=== PATIENT | female | born 1965 | race Caucasian/White ===

== ENCOUNTER 2023-10-09 08:50 | Inpatient (IN) | payer MEDICARE, SELFPAY ==
[2023-10-09] VITALS (20 sets, daily range): BP systolic 69–118; BP diastolic 33–60; PULSE 60–66; RESP 16–19; TEMP 36.6–36.7; O2SAT 84–100; BMI 35.0
--- NOTE | ~2023-10-09 | CT_ITS ---
CT head without contrast Indication: Weakness Technique: Serial scans were obtained through the brain without the administration of contrast. Dose reduction technique was used on this scan by utilizing automated exposure control and iterative recon struction technique. The dose-length product (DLP) was 681.00 mGy-cm. Findings: There is no evidence of intracranial hemorrhage, mass lesion, or acute infarct. The ventri cles and subarachnoid spaces are dilated, consistent with mild atrophy. Low attenuation regions are seen within the periventricular white matter bilaterally, likely representing changes from chronic mi crovascular ischemic disease. There is no evidence of edema, mass effect or midline shift. The visu alized paranasal sinuses and mastoid air cells are clear. Impression: No intracranial hemorrhage, mass, or acute infarct. Atrophy and chronic white matter changes, as above. Reviewed, dictated and finalized at location . NER Impression: No intracranial hemorrhage, mass, or acute infarct. Atrophy and chronic white matter changes, as above.
--- NOTE | ~2023-10-09 | XR_ITS ---
EXAMINATION: XR chest 1V portable DATE: 10/12/2023 07:06 INDICATION: Shortness of breath. TECHNIQUE: A single frontal view of the chest was obtained. COMPARISON: Chest single view 10/09/2023, chest CT 10/09/2023 FINDINGS: There is no pneumonia, pleural effusion, or pneumothorax. Cardiomegaly is noted. A right in ternal jugular central venous catheter is seen with tip at the superior cavoatrial junction. IMPRESSION: 1. Cardiomegaly. Reviewed, dictated and finalized at location E. TENANCE TEAM MEMBER IMPRESSION: 1. Cardiomegaly.
--- NOTE | ~2023-10-09 | XR_ITS ---
EXAMINATION: XR abdomen/kub 1V INDICATION: Constipation TECHNIQUE: Supine views of the abdomen were obtained on 2 radiographs. COMPARISON: None FINDINGS: A large volume of colonic stool is present. No dilated loops of bowel are identified. The v isualized lung bases are clear. IMPRESSION: 1. Constipation. Reviewed, dictated and finalized at location B. ITS MODEL IMPRESSION: 1. Constipation.
--- NOTE | ~2023-10-09 | XR_ITS ---
Portable chest x-ray Comparison: None Clinical History: Weakness Findings: Density at the right lung apex is probably related to the anterior right first rib. Lungs are otherwise clear. No pleural effusion. Right-sided central venous line in satisfactory position. Cardiomediastinal silhouette is stable. Bones and soft tissues are unremarkable. Impression: Density at the right lung apex is probably related to the anterior right first rib. Consider follow-u p exam or CT to confirm. Otherwise clear lungs. Support line, as above. Reviewed, dictated and finalized at location M. ERIES INSPECTOR Impression: Density at the right lung apex is probably related to the anterior right first rib. Consider follow-up exam or CT to confirm. Otherwise clear lungs. Support line, as above.
--- NOTE | ~2023-10-09 | MR_ITS ---
EXAMINATION: MR abdomen wo/w con DATE: 10/11/2023 12:50 INDICATION: Adrenal mass. TECHNIQUE: Magnetic resonance imaging (MRI) of the abdomen was performed without and with 19 mL Multi Juan Pablo intravenous contrast. COMPARISON: Chest CT 10/17/2023 FINDINGS: The liver is normal. There are two 5 mm cysts in the spleen. The gallbladder is absent. The pancreas is normal. There is a 12 mm mass in right adrenal gland containing microscopic fat, consistent with a n adenoma. There is a 3.2 cm mass in left adrenal gland containing microscopic fat, consistent with a n adenoma. There are cysts in the kidneys measuring up to 2.3 cm on the left. There are no dilated lo ops of bowel. There are no pathologically enlarged lymph nodes. There is no free intraperitoneal flui d. IMPRESSION: 1. Bilateral adrenal adenomas. Reviewed, dictated and finalized at location E. DIVER
--- NOTE | ~2023-10-09 | CT_ITS ---
Clinical Indication: Pulmonary embolus CT Scan of the Chest with Contrast: Technique: Contiguous sections were acquired throughout the chest after intravenous administration of 100 cc of Omnipaque 350. Dose reduction technique was used on this scan by utilizing automated expos ure control and iterative reconstruction technique. The dose-length product (DLP) was 1014.81 mGy-cm. Findings: There is no evidence of any significant mediastinal, hilar or axillary lymphadenopathy. There is no f illing defect in the pulmonary arterial tree to suggest pulmonary embolus. There is no evidence of ao rtic dissection or aneurysm. Cardiomegaly noted. There is no evidence of pleural or pericardial effusion. The lungs are clear. No pulmonary nodules or infiltrates are noted. Images through the upper abdomen reveal 3.8 cm left adrenal mass. Impression: No evidence of pulmonary embolus, aortic dissection, or aortic aneurysm. Clear lungs. 3.8 cm left adrenal mass, indeterminate by Hounsfield units. Recommend follow-up nonemergent MR to at tempt to confirm adenoma. Reviewed, dictated and finalized at location . RVISOR POST WAVE Impression: No evidence of pulmonary embolus, aortic dissection, or aortic aneurysm. Clear lungs. 3.8 cm left adrenal mass, indeterminate by Hounsfield units. Recommend follow-u p nonemergent MR to attempt to confirm adenoma.
--- NOTE | 2023-10-09 08:58 | ECG_ITS ---
Measurements Intervals [place] Rate: 62 P: 38 UT: 189 QRS: 14 QRSD: 118 T: 28 QT: 439 QTc: 449 Interpretive Statements SINUS RHYTHM NONSPECIFIC iNTRAVENTRICULAR CONDUCTION DELAY [110+ ms QRS DURATION] NONSPECIFIC T-WAVE ABNORMALITY BORDERLINE ECG NO PREVIOUS ECG AVAILABLE FOR COMPARISON Electronically Signed On 10-09-2023 13:50:39 LEGAL WORD PROCESSOR by Tre Pepe M.D.
[2023-10-09 09:34] LABS: Basophils Percent Auto 0.5 % (0.2-1.2); Eosinophils Absolute Auto 0.2 K/mm3 (0-0.3); Eosinophils Percent Auto 2.1 % (0-4.4); Hematocrit 28.9 % (37.0-47.0); Hemoglobin 9.2 g/dL (12.0-15.0); Immature Granulocyte Absolute 0.04 K/mm3 (0.00-0.031); Immature Granulocyte Percent A 0.5 % (0-0.5); Lymphocytes Absolute Auto 1.94 K/mm3 (0.9-3.2); Lymphocytes Percent Auto 22.3 % (18.3-44.2); Mean Corpuscular HGB Conc 31.8 g/dl (32-36); Mean Corpuscular Hemoglobin 30.9 pg (26-34); Mean Platelet Volume 10.1 fl (7.4-10.4); Monocytes Absolute Auto 0.8 K/mm3 (0.1-0.6); Monocytes Percent Auto 8.9 % (2.6-8.5); Neutrophils Absolute Auto 5.7 K/mm3 (1.3-6.7); Neutrophils Percent Auto 65.7 % (45.5-73.1); Platelet Count Result 110 k/mm3 (150-375); Red Blood Count 2.98 M/mm3 (4.2-5.4); Red Cell Distribution Width 17.2 % (11.5-14.5); White Blood Count 8.7 K/mm3 (4.5-10.0)
[2023-10-09 09:44] LABS: Alanine Aminotransferase 19 U/L (6-35); Albumin Level 3.5 g/dL (3.5-5.1); Alkaline Phosphatase 72 U/L (38-126); Anion Gap 10 mmol/L (8-16); Aspartate Amino Transferase 24 U/L (14-36); Bilirubin,Total 0.6 mg/dL (0.2-1.3); Blood Urea Nitrogen 40 mg/dL (7-17); Calcium 8.3 mg/dL (8.4-10.2); Carbon Dioxide 26 mmol/L (22-30); Chloride 98 mmol/L (98-107); Estimated CRCL calculation 10 ml/min; Estimated Glomerular Filt Rate 7; Glucose 115 mg/dL (65-110); Potassium 4.5 mmol/L (3.4-5.0); Sodium 134 mmol/L (137-145)
[2023-10-09 09:46] LABS: INR 1.1; Prothrombin Time 14.5 Seconds (11.1-14.7)
[2023-10-09 09:47] LABS: Partial Thromboplastin Time 37.1 SECONDS (22.3-36.8)
[2023-10-09] MEDS: SODIUM CHLORIDE 0.9% IV 1,000 ML 999 ML (10:14)
[2023-10-09] MEDS: SODIUM CHLORIDE 0.9% IV 760 ML 999 ML IV CONT (10:19)
--- NOTE | 2023-10-09 10:23 | ED.GENADULT ---
HPI - General Adult General Chief complaint: Weakness Stated complaint: AMS Time Seen by Provider: 10/09/23 10:10 Source: patient and EMS Mode of arrival: EMS History of Present Illness HPI narrative: 58 YEARS OLD WHITE FEMALE CAME FROM [facility] WITH GENERAL WEAKNESS AND LETHARGY STARTED LAST NIGHT. PATIENT HAD A RECENT DIAGNOSIS OF ACUTE CVA WITH RIGHT HEMIPLEGIA, PATIENT ON DIALYSIS, LAST DIALYSIS WAS YESTERDAY Related Data Home Medications Medication Instructions Recorded Confirmed albuterol sulfate 90 mcg/actuation 2 puff inhalation Q4H PRN Wheezing 10/08/23 10/09/23 aerosol inhaler amitriptyline 25 mg tablet 25 mg PO HS 10/08/23 10/09/23 amlodipine 10 mg tablet 10 mg PO DAILY 10/08/23 10/09/23 aspirin 81 mg tablet 81 mg PO DAILY 10/08/23 10/09/23 atorvastatin 80 mg tablet 80 mg PO HS 10/08/23 10/09/23 clopidogrel 75 mg tablet (Plavix) 75 mg PO DAILY 10/08/23 10/09/23 gabapentin 300 mg capsule 300 mg PO BID 10/08/23 10/09/23 insulin glargine 100 unit/mL 36 unit subcut HS 10/08/23 10/08/23 subcutaneous solution insulin lispro 100 unit/mL 12 unit subcut TIDWM 10/08/23 10/08/23 subcutaneous cartridge losartan 50 mg tablet (Cozaar) 50 mg PO DAILY 10/08/23 10/09/23 metoclopramide HCl 5 mg tablet 5 mg PO TIDWM 10/08/23 10/09/23 (Reglan) metoprolol succinate 100 mg 100 mg PO DAILY 10/08/23 10/09/23 tablet,extended release 24 hr (Toprol XL) ropinirole 0.25 mg tablet 0.25 mg PO HS 10/08/23 10/09/23 sertraline 150 mg capsule 150 mg PO QAM 10/08/23 10/09/23 sevelamer carbonate 800 mg tablet 800 mg PO TIDWM 10/08/23 10/09/23 (Renvela) heparin, porcine (PF) 5,000 5,000 unit subcut Q12H 10/09/23 10/09/23 unit/mL injection syringe hydralazine 25 mg tablet 25 mg PO QID PRN Hypertension 10/09/23 10/09/23 Allergies Allergy/AdvReac Type Severity Reaction Status Date / Time adhesive tape Allergy Rash Verified 10/09/23 09:33 duloxetine [From Cymbalta] Allergy Hives Verified 10/09/23 09:33 pregabalin [From Lyrica] Allergy Swelling Verified 10/09/23 09:33 vancomycin Allergy Other Verified 10/09/23 09:33 Review of Systems Review of Systems: All systems reviewed & are unremarkable except as noted in HPI and below PMFSH Past Medical History Medical History (Updated 10/09/23 @ 13:30 by Background Dachristopheron) Anemia Anxiety Asthma CVA (cerebral vascular accident) Depression Diabetes End stage renal disease Fibromyalgia Gastroparesis GERD (gastroesophageal reflux disease) Hyperlipidemia Hypertension NAFLD (nonalcoholic fatty liver disease) Peripheral neuropathy Restless leg syndrome Surgical History Surgical History (Updated 10/09/23 @ 11:39 by Carrie Han MD) History of tonsillectomy Hx laparoscopic cholecystectomy Status post biopsy of thyroid gland Family History Family History Mother Asthma Heart attack Hypertension Father Bipolar disorder Heart attack Hypertension Social History Social History Alcohol intake: never Substance use: never Substance use type: does not use Spiritual care concerns: No Exam Narrative: GENERAL APPEARANCE: WELL-DEVELOPED, WELL-NOURISHED SKIN: NORMAL COLOR HEAD: NORMOCEPHALIC, NONTRAUMATIC EYES: CLEAR CONJUNCTIVA ENT: OROPHARYNX NORMAL, EARS NORMAL, NOSE NORMAL NECK: SUPPLE, NONTENDER CHEST AND RESPIRATORY: AIRWAY PATENT, NO RESPIRATORY DISTRESS, NO ACCESSORY MUSCLE USE HEART: REGULAR RATE/RHYTHM ABDOMEN: SOFT, NONTENDER, NO ORGANOMEGALY, QUIET BOWEL SOUNDS VASCULAR: NORMAL PERIPHERAL PULSES, NORMAL CAPILLARY REFILL. MUSCULOSKELETAL: RIGHT HEMIPLEGIA NEUROLOGIC: ALERT AND ORIENTED ?3, RIGHT HEMIPLEGIA
[2023-10-09 11:03] LABS: Influenza A QL RT-PCR Negative (Negative); Influenza B QL RT-PCR Negative (Negative); RSV RNA, RT-PCR Negative (Negative); SARS-CoV-2 RNA PCR Negative (Negative)
[2023-10-09 11:06] LABS: Appearance Urine Cloudy (Clear); Bacteria Urine None Seen /hpf; Bilirubin Urine Negative (Negative); Blood Urine Trace (Negative); Color Urine Dark Yellow (Yellow); Glucose Urine UA 2+ mg/dL (Negative); Ketones Urine Trace mg/dL (Negative); Leukocyte Esterase Ur Trace LEU/UL (Negative); Need Manual Microscopic Reviewed; Nitrate Urine Negative (Negative); Protein Urine 4+ mg/dL (Negative); RBC Urine 0-2 /hpf (0-2); Specific Grav Ur 1.032 (1.001-1.035); Squamous Epithelial Cell Urine Few /hpf (Few); WBC Urine 0-5 /hpf; pH Urine 5.5 (5.0-9.0)
[2023-10-09 11:07] LABS: Base Excess ABG -2.8 mEq/l (+/-2.0); Fractional Inspired Oxygen 21 %; HCO3 ABG 22.5 mEq/l (22.0-26.0); Oxygen Content ABG 11.5 %vol (16.0-22.0); Oxygen Saturation ABG 87.5 % (95.0-100.0); PCO2 ABG 41.3 mmHg (35.0-45.0); PO2 ABG 55.3 mmHg (80.0-100.0); PO2 FiO2 Ratio Arterial Blood 2.63 %; Total Hemoglobin 9.6 g/dL (12.0-18.0); pH ABG 7.355 (7.350-7.450)
[2023-10-09 11:08] LABS: Device ROOM AIR; Modified Allen's Test Pass; Oxyhemoglobin 85.2 % THb (90.0-100.0); Site Drawn RIGHT RADIAL
[2023-10-09 11:08] LABS: Add Urine Microscopic? YES
--- NOTE | 2023-10-09 15:10 | ADMGEN ---
This patient, Ann Marie Luque, was admitted to Medical Room 247-. Patient/family oriented to hospital policies and general routines including ID bracelet, bed and alarms, visiting hours, pain management, procedures, bathroom and other care routines, personal items, smoking policy, room service/diet, and visiting hours. Information on how to activate the Rapid Response Team has been discussed. Patient/Family are encouraged to report perceived risks to care and to ask questions if they do not understand what they are told or what they should do.
[2023-10-09 19:35] LABS: MRSA (PCR) NOT DETECTED (NOT DETECTE)
[2023-10-10] VITALS (31 sets, daily range): BP systolic 101–151; BP diastolic 44–95; PULSE 56–82; RESP 16–20; TEMP 36.5–37.4; O2SAT 91–100
[2023-10-10] MEDS: INSULIN GLARGINE (*BKC) 100 UNITS/ML 32 UNITS SUB-Q ×2 (01:07→21:04)
[2023-10-10] MEDS: rOPINIRole HCL 0.25 MG TABLET PO ×2 (01:07→21:03)
--- NOTE | 2023-10-10 02:13 | PM.IMHP ---
H&P: HPI History of Present Illness Date/Time: 10/10/23 00:13 Chief Complaint: Lethargy, low blood pressure Narrative: 58-year-old female with a past medical history end-stage renal disease on hemodialysis, type 2 diabetes mellitus, essential hypertension, obesity, and recent CVA who presented to the hospital from [facility] acute rehab due to lethargy and hypotension. Patient initially presented to [facility] due to will factor hallucinations, vision defect, abnormal gait, dry eyes and mouth and multiple episodes of emesis. She was found to have a left paramedian pontine infarct. It is unclear from documentation when exactly the acute infarct occurred however the patient thinks that it was approximately 4 days ago.. Patient was transferred to acute rehab on 10/08/2023. The patient shortly after presentation to acute rehab the patient had increased weakness and lethargy that occurred after dialysis. Patient was found to be hypotensive with systolic blood pressures in the 80s. She was transferred to [facility] ER at which time her blood pressures shortly after arrival was 69/33. The patient received 3/4 of a L fluid in bolus with resolution of hypotension. Patient also had a documented findings hypoxia with O2 sats as low as 85%. ABG was performed which correlated with these findings. CTA of the chest was negative for pulmonary embolism and lungs were otherwise clear. Cardiomegaly was noted. Patient been placed on 3 L nasal cannula with improvement in oxygenation between [address] of the head without contrast demonstrated no acute process chronic atrophy and white matter changes. Patient was admitted as observation with Nephrology consult. The patient has a my evaluation was completed alert oriented but could not remember the events that brought her to the ER. She has not been having any fevers or chills. She denies any significant shortness of breath. She does have a history of CHF per her report. She denies a known history of COPD or asthma. She is a lifelong nonsmoker. She reports weakness in her right side since her stroke and vision changes in her right eye as well. She reports that this is at least her 2nd stroke. She reports that her kidney failure is due to diabetes and hypertension. She does have peripheral neuropathy. She reports that she has been on dialysis for approximately 2 years. Her rib cutter is Dr. Moreno. Dialysis is Thursday, day Thursday. She denies history of obstructive sleep apnea and has had a prior sleep study several years ago. She has actually lost weight since her prior sleep study. She reports that is been approximately 1 week since her last bowel movement. She denies any abdominal pain. Source of information is from ER physician report, nursing report, and records from acute rehab. The patient herself also provided some history in was a relatively good historian. Review of Systems Review of Systems: 12 systems were reviewed with pertinent positives and negatives per HPI. Except as documented in the HPI, all other systems were reviewed and are negative. [facility] Past Medical History Medical History Anemia Anxiety Asthma CVA (cerebral vascular accident) Depression Diabetes End stage renal disease Fibromyalgia Gastroparesis GERD (gastroesophageal reflux disease) Hyperlipidemia Hypertension NAFLD (nonalcoholic fatty liver disease) Peripheral neuropathy Restless leg syndrome Surgical History Surgical History History of tonsillectomy Hx laparoscopic cholecystectomy Status post biopsy of thyroid gland Family History Family History Mother Asthma Heart attack Hypertension Father Bipolar disorder Heart attack Hypertension Social History Social History (Updated 10/10/23 @ 05:58 by Nanette
[2023-10-10 07:21] LABS: Basophils Percent Auto 0.5 % (0.2-1.2); Eosinophils Absolute Auto 0.3 K/mm3 (0-0.3); Eosinophils Percent Auto 3.3 % (0-4.4); Hematocrit 30.7 % (37.0-47.0); Hemoglobin 9.4 g/dL (12.0-15.0); Immature Granulocyte Absolute 0.04 K/mm3 (0.00-0.031); Immature Granulocyte Percent A 0.5 % (0-0.5); Immature Platelet Fraction Pct 4.5 % (0.9-11.2); Lymphocytes Absolute Auto 1.19 K/mm3 (0.9-3.2); Lymphocytes Percent Auto 15.3 % (18.3-44.2); Mean Corpuscular HGB Conc 30.6 g/dl (32-36); Mean Corpuscular Hemoglobin 31.1 pg (26-34); Mean Corpuscular Volume 101.7 fl (80-100); Mean Platelet Volume 10.7 fl (7.4-10.4); Monocytes Absolute Auto 0.6 K/mm3 (0.1-0.6); Monocytes Percent Auto 7.1 % (2.6-8.5); Neutrophils Absolute Auto 5.7 K/mm3 (1.3-6.7); Neutrophils Percent Auto 73.3 % (45.5-73.1); Platelet Count Result 94 k/mm3 (150-375); Red Blood Count 3.02 M/mm3 (4.2-5.4); Red Cell Distribution Width 17.1 % (11.5-14.5); White Blood Count 7.8 K/mm3 (4.5-10.0)
[2023-10-10 07:38] LABS: Alanine Aminotransferase 15 U/L (6-35); Albumin Level 3.6 g/dL (3.5-5.1); Alkaline Phosphatase 69 U/L (38-126); Anion Gap 13 mmol/L (8-16); Aspartate Amino Transferase 20 U/L (14-36); Bilirubin,Total 0.5 mg/dL (0.2-1.3); Blood Urea Nitrogen 46 mg/dL (7-17); Calcium 7.7 mg/dL (8.4-10.2); Carbon Dioxide 20 mmol/L (22-30); Chloride 101 mmol/L (98-107); Estimated CRCL calculation 9 ml/min; Estimated Glomerular Filt Rate 6; Glucose 102 mg/dL (65-110); Phosphorus 8.8 mg/dL (2.5-4.5); Potassium 4.4 mmol/L (3.4-5.0); Sodium 134 mmol/L (137-145)
[2023-10-10] MEDS: METOPROLOL SUCCINATE EXT REL 50 MG TABCR PO (08:07)
[2023-10-10] MEDS: SERTRALINE HCL 50 MG TABLET 150 MG PO (08:08)
[2023-10-10] MEDS: LOSARTAN POTASSIUM 50 MG TABLET PO (08:08)
[2023-10-10] MEDS: HEPARIN SODIUM 5,000 UNITS/ML VIAL 5000 UNITS SUB-Q (08:09)
[2023-10-10] MEDS: SEVELAMER CARBONATE 800 MG TABLET PO ×3 (08:09→17:26)
[2023-10-10] MEDS: LIPASE/AMYLASE/PROTEASE 12,000 UNITS CAP 8 CAP PO ×3 (08:09→17:26)
[2023-10-10] MEDS: METOCLOPRAMIDE HCL 5 MG TABLET PO ×3 (08:09→17:26)
[2023-10-10] MEDS: CLOPIDOGREL BISULFATE 75 MG TABLET PO (08:09)
[2023-10-10] MEDS: GABAPENTIN 300 MG CAPSULE PO ×2 (08:09→17:26)
[2023-10-10] MEDS: ASPIRIN 81 MG CHEWABLE TABLET PO (08:09)
[2023-10-10] MEDS: OMEGA 3 POLYUNSAT FATTY ACIDS 1 GM CAP BY MOUTH ×2 (08:09→17:26)
[2023-10-10 08:22] LABS: Glucose Point of Care 106 mg/dl (65-105)
--- NOTE | 2023-10-10 08:40 | PM.IMPN ---
Progress Note: A&P Assessment and Plan (1) Acute hypoxemic respiratory failure: Code(s): J96.01 - Acute respiratory failure with hypoxia Status: Acute Assessment and Plan: Was found with an O2 sat 85% on admission Patient was placed on 3 L nasal cannula Continue to wean oxygen for an O2 sat of 92% or greater (2) Acute hypotension: Code(s): I95.9 - Hypotension, unspecified Status: Acute Assessment and Plan: In initial blood pressure was 69/33 She was given 2 L of normal saline while in the ED with improvement of her blood pressure (3) Hemodialysis patient: Code(s): Z99.2 - Dependence on renal dialysis Status: Acute Assessment and Plan: Normally Thursday dialysis She is followed by Dr. Moreno She missed her dialysis yesterday due to her hypotensive episode and will get HD today with no fluid removal (4) End stage renal disease: Code(s): N18.6 - End stage renal disease Status: Chronic Assessment and Plan: See above (5) Hypertension: Qualifiers: Hypertension type: primary hypertension Qualified Code(s): I10 - Essential (primary) hypertension Code(s): I10 - Essential (primary) hypertension Status: Chronic Assessment and Plan: Currently hypotensive on admission with systolic blood pressures in the 60s Currently hydralazine and amlodipine are on hold (6) Type 2 diabetes mellitus with hyperglycemia: Qualifiers: Diabetes mellitus snf insulin use: with terminal operations supervisor use Qualified Code(s): E11.65 - Type 2 diabetes mellitus with hyperglycemia; Z79.4 - manager long term care (current) use of insulin Code(s): E11.65 - Type 2 diabetes mellitus with hyperglycemia Status: Chronic Assessment and Plan: Blood sugars ranging 102-145 Hemoglobin A1c ordered Restarted her Lantus of 36 units at HS Sliding scale insulin 12 units subQ t.i.d. with meals Diabetic diet (7) Thrombocytopenia: Code(s): D69.6 - Thrombocytopenia, unspecified Status: Acute Assessment and Plan: Initial platelet count 1, now down to 94 Will hold heparin today, however patient has been taking heparin 5000 units twice a day at home Time Spent With Patient Time with patient: Greater than 35 minutes Subjective Date/time seen: 10/10/23 08:40 Interval history: This is a 58 year old female who presented to the hospital today from [facility] acute rehab with lethargy and hypotension. Work up in the hospital included a head CT which was negative for any acute intracranial hemorrhage, mass, or infarct, and age related changes. She also had a CXR was negative for any acute cardiopulmonary process. CTA of the chest was negative for PE, shown a 3.8 cm adrenal mass. Initial labs revealed Hgb 9.2, Hct 28.9, plt 110, pO2 55.3, ABG saturation 87.5, Na+ 134, BUN 40, creatinine 6.10, CA+ 8.3, total protein 6.0. UA shown 4+ protein, 2+ glucose, trace ketones, trace leukocytes. Respiratory panel negative for Influenza, RSV, and COVID. Hep B antigen and antibody pending. MRSA was negative. EKG shown NSR with a rate of 62, prolonged QTc. Patient was given 2L NS in the ER with improvement of her blood pressure. Nephrology was consulted. On examination today patient is alert oriented x3, lying in the bed. She denies any fever, chills, nausea, vomiting, diarrhea, abdominal pain, chest pain, shortness a breath. Labs today shown Hgb 9.4, Hct 30.7, Plt 94, Na+ 134, Bicarb 20, BUN 46, creatinine 7.10, BG ranging 102-106, Ca+ 7.7, Phos 8.8, total protein 6.0, liver enzymes are normal. Plan is for HD today. Review of Systems Review of Systems: All systems reviewed & are unremarkable except as noted in HPI and below Constitutional: Constitutional: Reports as per HPI and Reports no additional constitutional complaints Eyes: Eyes: Reports as per HPI and Reports no additional eye complaints ENT: Reports system reviewed and n
[2023-10-10 08:49] LABS: Anisocytosis 1+ (NORMAL); Platelet Estimate Adequate (Adequate); Schistocytes None Seen (NORMAL)
--- NOTE | 2023-10-10 09:39 | PM.CNNEP ---
Assessment and Plan Assessment and plan (1) End stage renal disease: Code(s): N18.6 - End stage renal disease Status: Chronic Assessment and Plan: the patient has end-stage renal disease. This is due to diabetes and hypertension. She has been on dialysis for [address] Moreno. She was due for dialysis yesterday but because of the transfer she did not get it so we will do dialysis today. Volume status looks okay. Dr. Han wrote for no fluid removal. potassium is normal so we will change to a 3K bath. (2) CVA (cerebral vascular accident): Code(s): I63.9 - Cerebral infarction, unspecified Status: Acute Assessment and Plan: The patient had a stroke a few days ago. She is getting physical therapy. She is on aspirin. She is on atorvastatin , and fish oil. (3) Hypertension: Qualifiers: Hypertension type: primary hypertension Qualified Code(s): I10 - Essential (primary) hypertension Code(s): I10 - Essential (primary) hypertension Status: Chronic Assessment and Plan: Blood pressure is currently doing pretty well. It was low yesterday. Hydralazine was discontinued. Will follow blood pressures going forward. No fluid removal today. (4) Hyperlipidemia: Code(s): E78.5 - Hyperlipidemia, unspecified Status: Acute Assessment and Plan: The patient is on atorvastatin (5) Type 2 diabetes mellitus with hyperglycemia: Qualifiers: Diabetes mellitus [facility] insulin use: with [facility] use Qualified Code(s): E11.65 - Type 2 diabetes mellitus with hyperglycemia; Z79.4 - superintendent marine oil terminal (current) use of insulin Code(s): E11.65 - Type 2 diabetes mellitus with hyperglycemia Status: Chronic Assessment and Plan: on Accu-Cheks and sliding-scale insulin. Management per hospitalists. (6) Anemia: Code(s): D64.9 - Anemia, unspecified Status: Chronic Assessment and Plan: Hemoglobin 9.4. She will get Epogen with dialysis today. (7) Adrenal mass, left: Code(s): E27.8 - Other specified disorders of adrenal gland Status: Acute Assessment and Plan: CTA done yesterday shows an adrenal mass. (8) Renal osteodystrophy: Code(s): N25.0 - Renal osteodystrophy Status: Acute Assessment and Plan: Will check a phosphorus level in the morning (9) Mental status alteration: Code(s): R41.82 - Altered mental status, unspecified Status: Acute Assessment and Plan: patient's blood pressure was quite low. It is better now in her mental status is better. No sign of infection. She is on a few medications chronically which could be considered mind-altering but nothing new. Imaging is okay. Will let the hospitalists do further evaluation. History of Present Illness Reason for Consult Consult date: 10/10/23 Chief Complaint Chief complaint: Acute Hypoxic Respiratiory Failure/Weakness/Hemodi History of Present Illness Narrative: Ann Marie is a very pleasant 58-year-old lady who has multiple medical problems including end-stage renal disease on dialysis Wednesdays and Fridays under the care of Dr. Mercy Moreno. She has been on dialysis for a couple of years. Her end-stage renal disease is due to diabetes and hypertension. She does pretty well on dialysis. She also has had several strokes. One on the right and 1 on the left. She also has diabetes, hypertension, hyperlipidemia, high body mass index, GERD , anemia of chronic kidney disease, renal osteodystrophy. The patient's issues this time started with right-sided weakness and a fall. She says she waited a couple of days before she went but eventually she went to [facility] to the ER. They admitted her. They did testing and did not find anything. she was given physical therapy and supportive care. She was referred to [facility] inpatient [facility] and she
[2023-10-10] MEDS: INSULIN ASPART (*BKC) 100 UNITS/ML 12 UNITS SUB-Q ×2 (09:44→12:09)
[2023-10-10 09:48] LABS: Hepatitis B Surface Antigen Negative (Negative)
[2023-10-10 10:04] LABS: Hepatitis B Surface Anti Res Negative
--- NOTE | 2023-10-10 10:19 | PC.NURSE ---
Patient resting comfortably during morning assessment. No needs at this time. Insulin held until after she eats breakfast (BG 106). Per RT patient is 96% on RA and has been taken of NC. Probable HD at 1300, patient made aware.
[2023-10-10 12:03] LABS: Glucose Point of Care 145 mg/dl (65-105)
--- NOTE | 2023-10-10 14:53 | PCPTNOTE ---
attempted PT eval this afternoon, she was out of her room for dialysis.
[2023-10-10] MEDS: ACETAMINOPHEN 325 MG TABLET 650 MG BY MOUTH (15:42)
[2023-10-10] MEDS: EPOETIN ALFA-EPBX 10,000 UNITS/ML VIAL 10000 UNITS IV PUSH (17:00)
[2023-10-10 17:32] LABS: Glucose Point of Care 95 mg/dl (65-105)
[2023-10-10 20:59] LABS: Glucose Point of Care 110 mg/dl (65-105)
--- NOTE | 2023-10-10 20:59 | PC.NURSE ---
Pt's glucose checked at 20:50, result: 110. This RN called Eve Ureña NP. Orders received to give 32 units of Lantus as scheduled.
[2023-10-10] MEDS: ATORVASTATIN 40 MG TABLET 80 MG PO (21:03)
[2023-10-10] MEDS: AMITRIPTYLINE HCL 25 MG TABLET PO (21:03)
[2023-10-11] VITALS (8 sets, daily range): BP systolic 94–139; BP diastolic 48–70; PULSE 57–70; RESP 14–20; TEMP 36.1–37; O2SAT 94–100
[2023-10-11 06:06] LABS: Basophils Percent Auto 0.5 % (0.2-1.2); Eosinophils Absolute Auto 0.2 K/mm3 (0-0.3); Eosinophils Percent Auto 2.5 % (0-4.4); Hematocrit 27.4 % (37.0-47.0); Hemoglobin 8.7 g/dL (12.0-15.0); Immature Granulocyte Absolute 0.02 K/mm3 (0.00-0.031); Immature Granulocyte Percent A 0.3 % (0-0.5); Immature Platelet Fraction Pct 4.8 % (0.9-11.2); Lymphocytes Percent Auto 15.4 % (18.3-44.2); Mean Corpuscular HGB Conc 31.8 g/dl (32-36); Mean Corpuscular Hemoglobin 30.9 pg (26-34); Mean Corpuscular Volume 97.2 fl (80-100); Mean Platelet Volume 10.6 fl (7.4-10.4); Monocytes Absolute Auto 0.6 K/mm3 (0.1-0.6); Monocytes Percent Auto 9.1 % (2.6-8.5); Neutrophils Absolute Auto 4.7 K/mm3 (1.3-6.7); Neutrophils Percent Auto 72.2 % (45.5-73.1); Platelet Count Result 86 k/mm3 (150-375); Red Blood Count 2.82 M/mm3 (4.2-5.4); Red Cell Distribution Width 17.1 % (11.5-14.5); White Blood Count 6.5 K/mm3 (4.5-10.0)
[2023-10-11 06:29] LABS: Alanine Aminotransferase 15 U/L (6-35); Albumin Level 3.3 g/dL (3.5-5.1); Alkaline Phosphatase 68 U/L (38-126); Anion Gap 6 mmol/L (8-16); Aspartate Amino Transferase 21 U/L (14-36); Bilirubin,Total 0.4 mg/dL (0.2-1.3); Blood Urea Nitrogen 28 mg/dL (7-17); Carbon Dioxide 28 mmol/L (22-30); Chloride 100 mmol/L (98-107); Estimated CRCL calculation 15 ml/min; Estimated Glomerular Filt Rate 11; Glucose 81 mg/dL (65-110); Phosphorus 4.5 mg/dL (2.5-4.5); Sodium 134 mmol/L (137-145)
[2023-10-11 06:48] LABS: Hypochromasia 1+ (NORMAL); Microcytosis 1+ (NORMAL); Platelet Estimate Decreased (Adequate); Schistocytes None Seen (NORMAL)
[2023-10-11 07:52] LABS: Glucose Point of Care 82 mg/dl (65-105)
[2023-10-11] MEDS: OMEGA 3 POLYUNSAT FATTY ACIDS 1 GM CAP BY MOUTH ×2 (08:45→17:15)
[2023-10-11] MEDS: SERTRALINE HCL 50 MG TABLET 150 MG PO (08:45)
[2023-10-11] MEDS: GABAPENTIN 300 MG CAPSULE PO ×2 (08:46→17:15)
[2023-10-11] MEDS: LIPASE/AMYLASE/PROTEASE 12,000 UNITS CAP 8 CAP PO ×3 (08:46→17:15)
[2023-10-11] MEDS: ASPIRIN 81 MG CHEWABLE TABLET PO (08:46)
[2023-10-11] MEDS: SEVELAMER CARBONATE 800 MG TABLET PO ×3 (08:46→17:14)
[2023-10-11] MEDS: CLOPIDOGREL BISULFATE 75 MG TABLET PO (08:46)
[2023-10-11] MEDS: METOCLOPRAMIDE HCL 5 MG TABLET PO ×3 (08:52→17:15)
[2023-10-11] MEDS: METOPROLOL SUCCINATE EXT REL 50 MG TABCR PO (09:15)
[2023-10-11] MEDS: LOSARTAN POTASSIUM 50 MG TABLET PO (09:15)
--- NOTE | 2023-10-11 09:54 | PM.PNNEP ---
Progress Note: A&P Assessment and Plan (1) End stage renal disease: Code(s): N18.6 - End stage renal disease Status: Chronic Assessment and Plan: the patient has end-stage renal disease. This is due to diabetes and hypertension. She has been on dialysis for [address] Moreno. The patient had dialysis yesterday Volume status looks okay. potassium is normal so we will change to a 3K bath. will do the next dialysis tomorrow (2) CVA (cerebral vascular accident): Code(s): I63.9 - Cerebral infarction, unspecified Status: Acute Assessment and Plan: The patient had a stroke a few days ago. She is getting physical therapy. She is on aspirin. She is on atorvastatin , and fish oil. (3) Hypertension: Qualifiers: Hypertension type: primary hypertension Qualified Code(s): I10 - Essential (primary) hypertension Code(s): I10 - Essential (primary) hypertension Status: Chronic Assessment and Plan: Blood pressure is currently doing pretty well. It was low yesterday. Hydralazine was discontinued. Will follow blood pressures going forward. No fluid removal today. (4) Hyperlipidemia: Code(s): E78.5 - Hyperlipidemia, unspecified Status: Acute Assessment and Plan: The patient is on atorvastatin (5) Type 2 diabetes mellitus with hyperglycemia: Qualifiers: Diabetes mellitus salvage determiner insulin use: with skilled nursing use Qualified Code(s): E11.65 - Type 2 diabetes mellitus with hyperglycemia; Z79.4 - prison (current) use of insulin Code(s): E11.65 - Type 2 diabetes mellitus with hyperglycemia Status: Chronic Assessment and Plan: on Accu-Cheks and sliding-scale insulin. Management per hospitalists. (6) Anemia: Code(s): D64.9 - Anemia, unspecified Status: Chronic Assessment and Plan: Hemoglobin 9.4. She will get Epogen with dialysis again tomorrow (7) Adrenal mass, left: Code(s): E27.8 - Other specified disorders of adrenal gland Status: Acute Assessment and Plan: CTA done yesterday shows an adrenal mass. (8) Renal osteodystrophy: Code(s): N25.0 - Renal osteodystrophy Status: Acute Assessment and Plan: phosphorus is normal (9) Mental status alteration: Code(s): R41.82 - Altered mental status, unspecified Status: Acute Assessment and Plan: this seems better. Eval per hospitalists Subjective Date/time seen: 10/11/23 09:54 Interval history: The patient is alert. She is feeling okay. Mental status is improved. Review of Systems Cardiovascular: Cardiovascular: Reports no additional cardiovascular complaints Respiratory: Respiratory: Reports no additional respiratory complaints Gastrointestinal: Gastrointestinal: Reports no additional gastrointestinal complaints Genitourinary: Genitourinary: Reports no additional female genitourinary complaints Exam Narrative: WDWN in NAD skin no rash head ncat lungs clear cor reg no rub abd BS+ nontender and soft ext no edema. Objective Data Vital Signs Vital Signs: Vital Signs - 24 hr 10/10/23 09:55 10/10/23 11:26 10/10/23 13:30 Temperature 98.0 F Pulse Rate 60 Respiratory Rate 18 Blood Pressure 128/59 L Pulse Oximetry 96 Oxygen Delivery Room Air Room Air 10/10/23 13:34 10/10/23 13:45 10/10/23 14:00 Temperature Pulse Rate 58 L 58 L 60 Respiratory Rate Blood Pressure 146/66 H 137/68 136/72 Pulse Oximetry Oxygen Delivery 10/10/23 14:15 10/10/23 14:30 10/10/23 12:00 Temperature Pulse Rate 58 L 71 59 L Respiratory Rate Blood Pressure 105/65 114/57 L Pulse Oximetry Oxygen Delivery 10/10/23 14:45 10/10/23 15:00 10/10/23 15:15 Temperature Pulse Rate 64 57 L 63 Respiratory Rate Blood Pressure 129/60 117/76 132/59 L Pulse Oximetry Oxygen Delivery
[2023-10-11] MEDS: INSULIN ASPART (*BKC) 100 UNITS/ML 12 UNITS SUB-Q ×2 (13:02→17:16)
[2023-10-11 13:05] LABS: Glucose Point of Care 117 mg/dl (65-105)
[2023-10-11] MEDS: polyethylene glycoL 3350 17 GM POWD.PACK PO (13:55)
[2023-10-11] MEDS: DOCUSATE SODIUM 100 MG CAPSULE PO (13:55)
--- NOTE | 2023-10-11 15:01 | P.PNIM_ITS ---
Progress Note: A&P Assessment and Plan (1) Acute hypoxemic respiratory failure: Code(s): J96.01 - Acute respiratory failure with hypoxia Status: Acute Assessment and Plan: * currently on room air (2) Acute hypotension: Code(s): I95.9 - Hypotension, unspecified Status: Acute Assessment and Plan: * In initial blood pressure was 69/33 * She was given 2 L of normal saline while in the ED with improvement of her blood pressure * continue to monitor (3) Hemodialysis patient: Code(s): Z99.2 - Dependence on renal dialysis Status: Acute Assessment and Plan: * Normally Thursday dialysis * She is followed by Dr. Moreno * nephrology consulted (4) End stage renal disease: Code(s): N18.6 - End stage renal disease Status: Chronic Assessment and Plan: * See above (5) Hypertension: Qualifiers: Hypertension type: primary hypertension Qualified Code(s): I10 - Essential (primary) hypertension Code(s): I10 - Essential (primary) hypertension Status: Chronic Assessment and Plan: * Currently hypotensive on admission with systolic blood pressures in the 60s * Currently hydralazine and amlodipine are on hold (6) Type 2 diabetes mellitus with hyperglycemia: Qualifiers: Diabetes mellitus director council on aging insulin use: with residential use Qualified Code(s): E11.65 - Type 2 diabetes mellitus with hyperglycemia; Z79.4 - half-way (current) use of insulin Code(s): E11.65 - Type 2 diabetes mellitus with hyperglycemia Status: Chronic Assessment and Plan: * Blood sugars ranging 102-145 * Hemoglobin A1c ordered * Restarted her Lantus of 36 units at HS * Sliding scale insulin 12 units subQ t.i.d. with meals * Diabetic diet (7) Thrombocytopenia: Code(s): D69.6 - Thrombocytopenia, unspecified Status: Acute Assessment and Plan: * Initial platelet count 1, now down to 87 * Will hold heparin * continue to monitor * iron studies ordered Subjective Date/time seen: 10/11/23 15:01 Interval history: Patient reports she is feeling somewhat better today after dialysis yesterday, but still very lethargic. Her BP has been stable today, nephrology following and will follow recommendations. Kidney function looks slightly improved post dialysis. PT/OT ordered as she came from [facility] but does not feel she was making improvement there. MRI ordered for additional evaluation of CTA findings. Will continue to monitor. Review of Systems Review of Systems: All systems reviewed & are unremarkable except as noted in HPI and below Exam Narrative: General: Ill-appearing, in no acute distress Head: atraumatic, no encephalopathy Eyes: EOMI, PERRLA ENT: moist mucous membranes Neck: supple Cardiac: RRR, Normal S1 and S2. Respiratory: Lungs clear to auscultation, no adventitious lung sounds Gastrointestinal: soft, non-distended, non-tender, normoactive bowel sounds. Extremities: no edema Skin: clean, dry, intact. No wounds or lesions. Neuro: Alert and oriented x4, cranial nerves intact, no neuro deficits. Psych: normal mood, normal affect Objective Data Vital Signs Vital Signs: Vital Signs - 24 hr 10/10/23 15:15 10/10/23 15:30 10/10/23 15:45 Temperature Pulse Rate 63 61 64 Respiratory Rate Blood Pressure 132/59 L 130/57 L 130/65 Pulse Oximet
--- NOTE | 2023-10-11 15:01 | PM.IMPN ---
Progress Note: A&P Assessment and Plan (1) Acute hypoxemic respiratory failure: Code(s): J96.01 - Acute respiratory failure with hypoxia Status: Acute Assessment and Plan: currently on room air (2) Acute hypotension: Code(s): I95.9 - Hypotension, unspecified Status: Acute Assessment and Plan: In initial blood pressure was 69/33 She was given 2 L of normal saline while in the ED with improvement of her blood pressure continue to monitor (3) Hemodialysis patient: Code(s): Z99.2 - Dependence on renal dialysis Status: Acute Assessment and Plan: Normally Thursday dialysis She is followed by Dr. Moreno nephrology consulted (4) End stage renal disease: Code(s): N18.6 - End stage renal disease Status: Chronic Assessment and Plan: See above (5) Hypertension: Qualifiers: Hypertension type: primary hypertension Qualified Code(s): I10 - Essential (primary) hypertension Code(s): I10 - Essential (primary) hypertension Status: Chronic Assessment and Plan: Currently hypotensive on admission with systolic blood pressures in the 60s Currently hydralazine and amlodipine are on hold (6) Type 2 diabetes mellitus with hyperglycemia: Qualifiers: Diabetes mellitus superintendent marine oil terminal insulin use: with superintendent marine oil terminal use Qualified Code(s): E11.65 - Type 2 diabetes mellitus with hyperglycemia; Z79.4 - halfway (current) use of insulin Code(s): E11.65 - Type 2 diabetes mellitus with hyperglycemia Status: Chronic Assessment and Plan: Blood sugars ranging 102-145 Hemoglobin A1c ordered Restarted her Lantus of 36 units at HS Sliding scale insulin 12 units subQ t.i.d. with meals Diabetic diet (7) Thrombocytopenia: Code(s): D69.6 - Thrombocytopenia, unspecified Status: Acute Assessment and Plan: Initial platelet count 1, now down to 87 Will hold heparin continue to monitor iron studies ordered Subjective Date/time seen: 10/11/23 15:01 Interval history: Patient reports she is feeling somewhat better today after dialysis yesterday, but still very lethargic. Her BP has been stable today, nephrology following and will follow recommendations. Kidney function looks slightly improved post dialysis. PT/OT ordered as she came from [facility] but does not feel she was making improvement there. MRI ordered for additional evaluation of CTA findings. Will continue to monitor. Review of Systems Review of Systems: All systems reviewed & are unremarkable except as noted in HPI and below Exam Narrative: General: Ill-appearing, in no acute distress Head: atraumatic, no encephalopathy Eyes: EOMI, PERRLA ENT: moist mucous membranes Neck: supple Cardiac: RRR, Normal S1 and S2. Respiratory: Lungs clear to auscultation, no adventitious lung sounds Gastrointestinal: soft, non-distended, non-tender, normoactive bowel sounds. Extremities: no edema Skin: clean, dry, intact. No wounds or lesions. Neuro: Alert and oriented x4, cranial nerves intact, no neuro deficits. Psych: normal mood, normal affect Objective Data Vital Signs Vital Signs: Vital Signs - 24 hr 10/10/23 15:15 10/10/23 15:30 10/10/23 15:45 Temperature Pulse Rate 63 61 64 Respiratory Rate Blood Pressure 132/59 L 130/57 L 130/65 Pulse Oximetry Oxygen Delivery 10/10/23 16:00 10/10/23 16:00 10/10/23 17:09 Temperature 97.7 F Pulse Rate 62 82 60 Respiratory Rate 18 Blood Pressure 151/95 H 134/67 Pulse Oximetry Oxygen Delivery 10/10/23 16:15 10/10/23 16:30 10/10/23 16:45 Temperature Pulse Rate 63 59 L 56 L Respiratory Rate Blood Pressure 126/53 L 131/65 146/76 H Pulse Oximetry Oxygen Delivery 10/10/23 17:00 10/10/23 17:04 10/10/23 19:54 Temperature 98 F Pulse Rate 61 59 L 66 Respiratory Rate 16 Blood Pressure 138/68 132/69 117/51 L Pulse Oxime
[2023-10-11 17:15] LABS: Glucose Point of Care 249 mg/dl (65-105)
[2023-10-11] MEDS: INSULIN ASPART (*BKC) 100 UNITS/ML SUB-Q (17:16)
[2023-10-11] MEDS: ACETAMINOPHEN 325 MG TABLET 650 MG BY MOUTH (20:51)
[2023-10-11] MEDS: ATORVASTATIN 40 MG TABLET 80 MG PO (20:51)
[2023-10-11] MEDS: rOPINIRole HCL 0.25 MG TABLET PO (20:51)
[2023-10-11] MEDS: AMITRIPTYLINE HCL 25 MG TABLET PO (20:51)
[2023-10-11 21:23] LABS: Glucose Point of Care 123 mg/dl (65-105)
[2023-10-11] MEDS: INSULIN GLARGINE (*BKC) 100 UNITS/ML 32 UNITS SUB-Q (21:39)
[2023-10-12] VITALS (29 sets, daily range): BP systolic 137–173; BP diastolic 63–84; PULSE 63–76; RESP 17–20; TEMP 36–37.5; O2SAT 89–98
[2023-10-12 03:49] LABS: Glucose Point of Care 101 mg/dl (65-105)
[2023-10-12 05:41] LABS: Basophils Percent Auto 0.4 % (0.2-1.2); Eosinophils Absolute Auto 0.3 K/mm3 (0-0.3); Eosinophils Percent Auto 3.2 % (0-4.4); Hematocrit 27.4 % (37.0-47.0); Immature Granulocyte Absolute 0.03 K/mm3 (0.00-0.031); Immature Granulocyte Percent A 0.4 % (0-0.5); Immature Platelet Fraction Pct 5.8 % (0.9-11.2); Lymphocytes Absolute Auto 1.47 K/mm3 (0.9-3.2); Lymphocytes Percent Auto 18.7 % (18.3-44.2); Mean Corpuscular HGB Conc 32.8 g/dl (32-36); Mean Corpuscular Hemoglobin 31.7 pg (26-34); Mean Corpuscular Volume 96.5 fl (80-100); Mean Platelet Volume 11.5 fl (7.4-10.4); Monocytes Absolute Auto 0.7 K/mm3 (0.1-0.6); Neutrophils Absolute Auto 5.4 K/mm3 (1.3-6.7); Neutrophils Percent Auto 68.3 % (45.5-73.1); Platelet Count Result 89 k/mm3 (150-375); Red Blood Count 2.84 M/mm3 (4.2-5.4); Red Cell Distribution Width 16.9 % (11.5-14.5); White Blood Count 7.9 K/mm3 (4.5-10.0)
[2023-10-12 05:58] LABS: Iron 59 ug/dL (37-170)
[2023-10-12 06:00] LABS: Alanine Aminotransferase 14 U/L (6-35); Albumin Level 3.3 g/dL (3.5-5.1); Alkaline Phosphatase 74 U/L (38-126); Anion Gap 7 mmol/L (8-16); Aspartate Amino Transferase 17 U/L (14-36); Bilirubin,Total 0.4 mg/dL (0.2-1.3); Blood Urea Nitrogen 39 mg/dL (7-17); Calcium 8.1 mg/dL (8.4-10.2); Carbon Dioxide 28 mmol/L (22-30); Chloride 99 mmol/L (98-107); Estimated CRCL calculation 10 ml/min; Estimated Glomerular Filt Rate 7; Glucose 88 mg/dL (65-110); Phosphorus 5.5 mg/dL (2.5-4.5); Potassium 4.3 mmol/L (3.4-5.0); Sodium 134 mmol/L (137-145)
[2023-10-12 06:08] LABS: Percent Iron Saturation 27 % (20-50)
[2023-10-12] MEDS: SEVELAMER CARBONATE 800 MG TABLET PO ×3 (08:19→17:32)
[2023-10-12] MEDS: METOCLOPRAMIDE HCL 5 MG TABLET PO ×3 (08:19→17:32)
[2023-10-12] MEDS: LIPASE/AMYLASE/PROTEASE 12,000 UNITS CAP 8 CAP PO ×3 (08:19→17:32)
[2023-10-12] MEDS: ASPIRIN 81 MG CHEWABLE TABLET PO (08:19)
[2023-10-12] MEDS: SERTRALINE HCL 50 MG TABLET 150 MG PO (08:20)
[2023-10-12] MEDS: CLOPIDOGREL BISULFATE 75 MG TABLET PO (08:20)
[2023-10-12] MEDS: OMEGA 3 POLYUNSAT FATTY ACIDS 1 GM CAP BY MOUTH ×2 (08:20→17:32)
[2023-10-12] MEDS: GABAPENTIN 300 MG CAPSULE PO ×2 (08:20→17:32)
[2023-10-12 08:25] LABS: Glucose Point of Care 91 mg/dl (65-105)
--- NOTE | 2023-10-12 09:30 | PM.PNNEP ---
Progress Note: A&P Assessment and Plan (1) End stage renal disease: Code(s): N18.6 - End stage renal disease Status: Chronic Assessment and Plan: HD today continue outpatient Thu/Thu/Thursday dialysis schedule kidney disease due to HTN and DM follow electrolytes, volume status, and clearance follows with Dr. Moreno at [facility] (2) CVA (cerebral vascular accident): Code(s): I63.9 - Cerebral infarction, unspecified Status: Acute Assessment and Plan: as noted by evaluation at [facility] prior to transfer to [facility] continue medical management PT/OT as tolerated (3) Altered mental status: Code(s): R41.82 - Altered mental status, unspecified Status: Acute Assessment and Plan: appears to be doing better if not back to baseline etiology not clear due to hypotension? previous CVA? other? UA on 10/09/23 suggestive of infection and has a history as well recheck UA and urine culture follow mentation (4) Hypertension: Qualifiers: Hypertension type: primary hypertension Qualified Code(s): I10 - Essential (primary) hypertension Code(s): I10 - Essential (primary) hypertension Status: Chronic Assessment and Plan: initially low on presentation s/p IVF resuscitation and holding BP medications perhaps back to back dialysis treatments prior to presentation to [facility] was responsible BP better at this time slowly re-introduce anti-hypertensive medications as needed/tolerated (5) Anemia: Code(s): D64.9 - Anemia, unspecified Status: Chronic Assessment and Plan: due to ESRD Epogen with HD follow trend of H/H (6) Type 2 diabetes mellitus with hyperglycemia: Qualifiers: Diabetes mellitus group home insulin use: with intermodal customer service use Qualified Code(s): E11.65 - Type 2 diabetes mellitus with hyperglycemia; Z79.4 - long term (current) use of insulin Code(s): E11.65 - Type 2 diabetes mellitus with hyperglycemia Status: Chronic Assessment and Plan: follow accu-cheks glycemic control per hospitalists Will continue to follow. Subjective Date/time seen: 10/12/23 09:30 Interval history: Follow-up for end stage renal disease on hemodialysis. Chart reviewed from when I last saw her - assuming care from Dr. Berman; admitted from [facility] to [facility] due to altered mental status and hypotension; hypotension improved with IVFs as did mentation; no apparent distress currently with her only complaint being fatigue ( tired ); toleating dialysis treatment at the time of my visit (seen on HD at 9:20AM). Exam Narrative: General: WD/WN female in NAD Heart: normal S1 and S2; no rub Lungs: clear to auscultation Abdomen: soft, nontender, nondistended, positive bowel sounds Extremities: no cyanosis or clubbing; no edema Skin: warm and dry Objective Data Vital Signs Vital Signs: Vital Signs Temp Pulse Resp BP Pulse Ox O2 Del Method 10/12/23 09:30 69 143/73 H 10/12/23 09:20 66 152/84 H 10/12/23 09:13 68 139/76 10/12/23 09:02 97.7 F 68 20 137/73 10/12/23 08:26 97.7 F 66 17 173/80 H 97 10/12/23 04:00 63 10/12/23 03:15 96.8 F L 74 20 139/63 97 10/12/23 03:13 96.8 F L 74 20 139/63 97 10/12/23 00:00 63 10/11/23 20:00 62 10/12/23 00:00 97 F L 65 20 139/65 97 10/11/23 20:00 62 20 95 Room Air 10/11/23 20:00 97.2 F L 62 20 137/65 95 10/11/23 22:00 97.2 F L 62 20 137/65 95 10/11/23 16:00 97 F L 57 L 18 110/70 100 10/11/23 16:00 60 10/11/23 13:43 97.9 F 60 14 94/50 L 100 Intake/Output Intake/Output: Intake & Output 10/09/23 10/10/23 10/11/23 10/12/23 23:59 23:59 23:59 23:59 Intake Total 2200 530 300 120 Output Total 50 0 Balance 2150 530 300 120 Meds/Results Medications: Active Medications Gen
--- NOTE | 2023-10-12 09:30 | P.PNNP_ITS ---
Progress Note: A&P Assessment and Plan (1) End stage renal disease: Code(s): N18.6 - End stage renal disease Status: Chronic Assessment and Plan: * HD today * continue outpatient Thu/Thu/Thursday dialysis schedule * kidney disease due to HTN and DM * follow electrolytes, volume status, and clearance * follows with Dr. Moreno at [facility] (2) CVA (cerebral vascular accident): Code(s): I63.9 - Cerebral infarction, unspecified Status: Acute Assessment and Plan: * as noted by evaluation at [facility] prior to transfer to [facility] * continue medical management * PT/OT as tolerated (3) Altered mental status: Code(s): R41.82 - Altered mental status, unspecified Status: Acute Assessment and Plan: * appears to be doing better if not back to baseline * etiology not clear * due to hypotension? * previous CVA? * other? * UA on 10/09/23 suggestive of infection and has a history as well * recheck UA and urine culture * follow mentation (4) Hypertension: Qualifiers: Hypertension type: primary hypertension Qualified Code(s): I10 - Essential (primary) hypertension Code(s): I10 - Essential (primary) hypertension Status: Chronic Assessment and Plan: * initially low on presentation * s/p IVF resuscitation and holding BP medications * perhaps back to back dialysis treatments prior to presentation to [facility] was responsible * BP better at this time * slowly re-introduce anti-hypertensive medications as needed/tolerated (5) Anemia: Code(s): D64.9 - Anemia, unspecified Status: Chronic Assessment and Plan: * due to ESRD * Epogen with HD * follow trend of H/H (6) Type 2 diabetes mellitus with hyperglycemia: Qualifiers: Diabetes mellitus longterm insulin use: with longterm use Qualified Code(s): E11.65 - Type 2 diabetes mellitus with hyperglycemia; Z79.4 - predatory animal exterminator (current) use of insulin Code(s): E11.65 - Type 2 diabetes mellitus with hyperglycemia Status: Chronic Assessment and Plan: * follow accu-cheks * glycemic control per hospitalists Will continue to follow. Subjective Date/time seen: 10/12/23 09:30 Interval history: Follow-up for end stage renal disease on hemodialysis. Chart reviewed from when I last saw her - assuming care from Dr. Berman; admitted from [facility] to [facility] due to altered mental status and hypotension; hypotension improved with IVFs as did mentation; no apparent distress currently with her only complaint being fatigue ( tired ); toleating di alysis treatment at the time of my visit (seen on HD at 9:20AM). Exam Narrative: General: WD/WN female in NAD Heart: normal S1 and S2; no rub Lungs: clear to auscultation Abdomen: soft, nontender, nondistended, positive bowel sounds Extremities: no cyanosis or clubbing; no edema Skin: warm and dry Objective Data Vital Signs Vital Signs: Vital Signs Temp Pulse Resp BP Pulse Ox O2 Del Method 10/12/23 09:30 69 143/73 H 10/12/23 09:20 66 152/84 H 10/12/23 09:13 68 139/76 10/12/23 09:02 97.7 F 68 20 137/73 10/12/23 08:26 97.7 F 66 17 173/80 H 97 10/12/23 04:00 63 10/12/23 03:15 96.8 F L 74 20 139/63 97 10/12/23 03:13
--- NOTE | 2023-10-12 09:31 | PCPTNOTE ---
Attempted to see patient for PT, however patient was out of the room for dialysis.
[2023-10-12] MEDS: EPOETIN ALFA-EPBX 10,000 UNITS/ML VIAL 10000 UNITS IV PUSH (11:03)
[2023-10-12] MEDS: HEPARIN SODIUM 1,000 UNITS/ML VIAL 5000 UNITS IV PUSH (13:01)
[2023-10-12 13:24] LABS: Glucose Point of Care 95 mg/dl (65-105)
--- NOTE | 2023-10-12 13:26 | PCPTNOTE ---
Attempted to see patient for PT, however patient just got back from dialysis and was eating lunch at this time.
[2023-10-12] MEDS: LOSARTAN POTASSIUM 50 MG TABLET PO (13:53)
[2023-10-12] MEDS: METOPROLOL SUCCINATE EXT REL 50 MG TABCR PO (13:53)
--- NOTE | 2023-10-12 15:18 | P.PNIM_ITS ---
Progress Note: A&P Assessment and Plan (1) Acute hypoxemic respiratory failure: Code(s): J96.01 - Acute respiratory failure with hypoxia Status: Acute Assessment and Plan: * currently on room air (2) Acute hypotension: Code(s): I95.9 - Hypotension, unspecified Status: Resolved Assessment and Plan: * In initial blood pressure was 69/33 * She was given 2 L of normal saline while in the ED with improvement of her blood pressure * continue to monitor (3) Hemodialysis patient: Code(s): Z99.2 - Dependence on renal dialysis Status: Acute Assessment and Plan: * Normally Thursday dialysis * She is followed by Dr. Moreno * nephrology following - ordered repeat UA * received dialysis today (4) End stage renal disease: Code(s): N18.6 - End stage renal disease Status: Chronic Assessment and Plan: * See above (5) Hypertension: Qualifiers: Hypertension type: primary hypertension Qualified Code(s): I10 - Essential (primary) hypertension Code(s): I10 - Essential (primary) hypertension Status: Chronic Assessment and Plan: * hypertensive today * resuming hydralazine and amlodipine (6) Type 2 diabetes mellitus with hyperglycemia: Qualifiers: Diabetes mellitus intermodal owner operator truck driver insulin use: with intermodal owner operator truck driver use Qualified Code(s): E11.65 - Type 2 diabetes mellitus with hyperglycemia; Z79.4 - senior care (current) use of insulin Code(s): E11.65 - Type 2 diabetes mellitus with hyperglycemia Status: Chronic Assessment and Plan: * Blood sugars ranging 102-145 * Hemoglobin A1c ordered * Restarted her Lantus of 36 units at HS * Sliding scale insulin 12 units subQ t.i.d. with meals * Diabetic diet (7) Thrombocytopenia: Code(s): D69.6 - Thrombocytopenia, unspecified Status: Acute Assessment and Plan: * Initial platelet count 1, now down to 87 * Will hold heparin * continue to monitor * iron studies: iron 59, TIBC 215, 27% sat, 509 ferritin Subjective Date/time seen: 10/12/23 15:18 Interval history: Patient reports she is still very lethargic. She is reporting dizziness, with history of vertigo will start her on meclizine QID and see if this helps. Her BP has been elevated, resuming BP medications. She received dialysis today. Nephrology following and ordered repeat UA which has not yet been collected. Will plan for d/c tomorrow back to [facility] if patient remains stable. Review of Systems Review of Systems: All systems reviewed & are unremarkable except as noted in HPI and below Exam Narrative: General: Ill-appearing, in no acute distress Head: atraumatic, no encephalopathy Eyes: EOMI, PERRLA ENT: moist mucous membranes Neck: supple Cardiac: RRR, Normal S1 and S2. Respiratory: Lungs clear to auscultation, no adventitious lung sounds Gastrointestinal: soft, non-distended, non-tender, normoactive bowel sounds. Extremities: no edema Skin: clean, dry, intact. No wounds or lesions. Neuro: Alert and oriented x4, cranial nerves intact, no neuro deficits. Psych: normal mood, normal affect Objective Data Vital Signs Vital Signs: Vital Signs - 24 hr 10/11/23 16:00 10/11/23 16:00 10/11/23 22:00 Temperature 97 F L 97.2 F L Pulse Rate 60 57 L 62 Respiratory Rate 18 20 Blood Pressure 110/70 137/65 Pulse Oximetry 100
--- NOTE | 2023-10-12 15:18 | PM.IMPN ---
Progress Note: A&P Assessment and Plan (1) Acute hypoxemic respiratory failure: Code(s): J96.01 - Acute respiratory failure with hypoxia Status: Acute Assessment and Plan: currently on room air (2) Acute hypotension: Code(s): I95.9 - Hypotension, unspecified Status: Resolved Assessment and Plan: In initial blood pressure was 69/33 She was given 2 L of normal saline while in the ED with improvement of her blood pressure continue to monitor (3) Hemodialysis patient: Code(s): Z99.2 - Dependence on renal dialysis Status: Acute Assessment and Plan: Normally Thursday dialysis She is followed by Dr. Moreno nephrology following - ordered repeat UA received dialysis today (4) End stage renal disease: Code(s): N18.6 - End stage renal disease Status: Chronic Assessment and Plan: See above (5) Hypertension: Qualifiers: Hypertension type: primary hypertension Qualified Code(s): I10 - Essential (primary) hypertension Code(s): I10 - Essential (primary) hypertension Status: Chronic Assessment and Plan: hypertensive today resuming hydralazine and amlodipine (6) Type 2 diabetes mellitus with hyperglycemia: Qualifiers: Diabetes mellitus [facility] insulin use: with terminal makeup operator use Qualified Code(s): E11.65 - Type 2 diabetes mellitus with hyperglycemia; Z79.4 - shelter (current) use of insulin Code(s): E11.65 - Type 2 diabetes mellitus with hyperglycemia Status: Chronic Assessment and Plan: Blood sugars ranging 102-145 Hemoglobin A1c ordered Restarted her Lantus of 36 units at HS Sliding scale insulin 12 units subQ t.i.d. with meals Diabetic diet (7) Thrombocytopenia: Code(s): D69.6 - Thrombocytopenia, unspecified Status: Acute Assessment and Plan: Initial platelet count 1, now down to 87 Will hold heparin continue to monitor iron studies: iron 59, TIBC 215, 27% sat, 509 ferritin Subjective Date/time seen: 10/12/23 15:18 Interval history: Patient reports she is still very lethargic. She is reporting dizziness, with history of vertigo will start her on meclizine QID and see if this helps. Her BP has been elevated, resuming BP medications. She received dialysis today. Nephrology following and ordered repeat UA which has not yet been collected. Will plan for d/c tomorrow back to [facility] if patient remains stable. Review of Systems Review of Systems: All systems reviewed & are unremarkable except as noted in HPI and below Exam Narrative: General: Ill-appearing, in no acute distress Head: atraumatic, no encephalopathy Eyes: EOMI, PERRLA ENT: moist mucous membranes Neck: supple Cardiac: RRR, Normal S1 and S2. Respiratory: Lungs clear to auscultation, no adventitious lung sounds Gastrointestinal: soft, non-distended, non-tender, normoactive bowel sounds. Extremities: no edema Skin: clean, dry, intact. No wounds or lesions. Neuro: Alert and oriented x4, cranial nerves intact, no neuro deficits. Psych: normal mood, normal affect Objective Data Vital Signs Vital Signs: Vital Signs - 24 hr 10/11/23 16:00 10/11/23 16:00 10/11/23 22:00 Temperature 97 F L 97.2 F L Pulse Rate 60 57 L 62 Respiratory Rate 18 20 Blood Pressure 110/70 137/65 Pulse Oximetry 100 95 Oxygen Delivery 10/11/23 20:00 10/11/23 20:00 10/12/23 00:00 Temperature 97.2 F L 97 F L Pulse Rate 62 62 65 Respiratory Rate 20 20 20 Blood Pressure 137/65 139/65 Pulse Oximetry 95 95 97 Oxygen Delivery Room Air 10/11/23 20:00 10/12/23 00:00 10/12/23 03:13 Temperature 96.8 F L Pulse Rate 62 63 74 Respiratory Rate 20 Blood Pressure 139/63 Pulse Oximetry 97 Oxygen Delivery 10/12/23 03:15 10/12/23 04:00 10/12/23 08:26 Temperature 96.8 F L 97.7 F Pulse Rate 74 63 66 Respiratory Rate 20 17 Blood Pressure 139/63 173/80 H
[2023-10-12 16:57] LABS: Glucose Point of Care 114 mg/dl (65-105)
[2023-10-12] MEDS: MECLIZINE HCL 12.5 MG TABLET PO ×2 (17:34→20:47)
[2023-10-12 20:44] LABS: Glucose Point of Care 338 mg/dl (65-105)
[2023-10-12] MEDS: rOPINIRole HCL 0.25 MG TABLET PO (20:47)
[2023-10-12] MEDS: INSULIN GLARGINE (*BKC) 100 UNITS/ML 32 UNITS SUB-Q (20:48)
[2023-10-12] MEDS: AMITRIPTYLINE HCL 25 MG TABLET PO (20:48)
[2023-10-12] MEDS: ATORVASTATIN 40 MG TABLET 80 MG PO (20:48)
[2023-10-12] MEDS: INSULIN ASPART (*BKC) 100 UNITS/ML SUB-Q (20:49)
[2023-10-12 21:14] LABS: Appearance Urine Turbid (Clear); Bacteria Urine 1+ /hpf; Bilirubin Urine Negative (Negative); Blood Urine 2+ (Negative); Color Urine Yellow (Yellow); Glucose Urine UA 1+ mg/dL (Negative); Ketones Urine Negative (Negative); Leukocyte Esterase Ur 3+ LEU/UL (Negative); Nitrate Urine Negative (Negative); Non Pathogenic Casts 0-2; Protein Urine 3+ mg/dL (Negative); RBC Urine 51-100 /hpf (0-2); Specific Grav Ur 1.011 (1.001-1.035); Squamous Epithelial Cell Urine Moderate /hpf (Few); Urobilinogen Urine 0.2 mg/dL (<2.0); WBC Urine >100 /hpf; pH Urine 8.5 (5.0-9.0)
[2023-10-12 21:20] LABS: Add Urine Microscopic? YES
[2023-10-13] VITALS (12 sets, daily range): BP systolic 125–156; BP diastolic 66–79; PULSE 66–73; RESP 18; TEMP 36.2–36.7; O2SAT 92–96
[2023-10-13 05:45] LABS: Basophils Percent Auto 0.4 % (0.2-1.2); Eosinophils Absolute Auto 0.2 K/mm3 (0-0.3); Eosinophils Percent Auto 2.8 % (0-4.4); Hematocrit 29.6 % (37.0-47.0); Hemoglobin 9.6 g/dL (12.0-15.0); Immature Granulocyte Absolute 0.04 K/mm3 (0.00-0.031); Immature Granulocyte Percent A 0.6 % (0-0.5); Immature Platelet Fraction Pct 5.3 % (0.9-11.2); Lymphocytes Absolute Auto 1.12 K/mm3 (0.9-3.2); Lymphocytes Percent Auto 15.5 % (18.3-44.2); Mean Corpuscular HGB Conc 32.4 g/dl (32-36); Mean Corpuscular Hemoglobin 31.3 pg (26-34); Mean Corpuscular Volume 96.4 fl (80-100); Mean Platelet Volume 10.8 fl (7.4-10.4); Monocytes Absolute Auto 0.7 K/mm3 (0.1-0.6); Monocytes Percent Auto 9.7 % (2.6-8.5); Neutrophils Absolute Auto 5.1 K/mm3 (1.3-6.7); Platelet Count Result 96 k/mm3 (150-375); Red Blood Count 3.07 M/mm3 (4.2-5.4); Red Cell Distribution Width 17.1 % (11.5-14.5); White Blood Count 7.2 K/mm3 (4.5-10.0)
[2023-10-13 05:57] LABS: Alanine Aminotransferase 12 U/L (6-35); Albumin Level 3.2 g/dL (3.5-5.1); Alkaline Phosphatase 71 U/L (38-126); Anion Gap 7 mmol/L (8-16); Aspartate Amino Transferase 18 U/L (14-36); Bilirubin,Total 0.5 mg/dL (0.2-1.3); Blood Urea Nitrogen 24 mg/dL (7-17); Calcium 8.5 mg/dL (8.4-10.2); Carbon Dioxide 27 mmol/L (22-30); Chloride 103 mmol/L (98-107); Estimated CRCL calculation 17 ml/min; Estimated Glomerular Filt Rate 12; Glucose 104 mg/dL (65-110); Potassium 4.4 mmol/L (3.4-5.0); Sodium 137 mmol/L (137-145)
[2023-10-13 08:17] LABS: Glucose Point of Care 155 mg/dl (65-105)
[2023-10-13] MEDS: DOCUSATE SODIUM 100 MG CAPSULE PO ×2 (08:48→16:48)
[2023-10-13] MEDS: GABAPENTIN 300 MG CAPSULE PO ×2 (08:48→16:48)
[2023-10-13] MEDS: SERTRALINE HCL 50 MG TABLET 150 MG PO (08:48)
[2023-10-13] MEDS: OMEGA 3 POLYUNSAT FATTY ACIDS 1 GM CAP BY MOUTH ×2 (08:48→16:47)
[2023-10-13] MEDS: SEVELAMER CARBONATE 800 MG TABLET PO ×3 (08:48→16:48)
[2023-10-13] MEDS: polyethylene glycoL 3350 17 GM POWD.PACK PO (08:48)
[2023-10-13] MEDS: METOCLOPRAMIDE HCL 5 MG TABLET PO ×3 (08:49→16:48)
[2023-10-13] MEDS: ASPIRIN 81 MG CHEWABLE TABLET PO (08:49)
[2023-10-13] MEDS: CLOPIDOGREL BISULFATE 75 MG TABLET PO (08:49)
[2023-10-13] MEDS: LOSARTAN POTASSIUM 50 MG TABLET PO (08:49)
[2023-10-13] MEDS: amLODIPine BESYLATE 5 MG TABLET 10 MG PO (08:49)
[2023-10-13] MEDS: METOPROLOL SUCCINATE EXT REL 50 MG TABCR PO (08:49)
[2023-10-13] MEDS: MECLIZINE HCL 12.5 MG TABLET PO ×4 (08:50→20:48)
[2023-10-13] MEDS: LIPASE/AMYLASE/PROTEASE 12,000 UNITS CAP 8 CAP PO ×3 (08:50→16:47)
--- NOTE | 2023-10-13 09:51 | PM.PNNEP ---
Progress Note: A&P Assessment and Plan (1) End stage renal disease: Code(s): N18.6 - End stage renal disease Status: Chronic Assessment and Plan: HD tomorrow continue outpatient Thu/Thu/Thursday dialysis schedule kidney disease due to HTN and DM follow electrolytes, volume status, and clearance follows with Dr. Moreno at [facility] (2) CVA (cerebral vascular accident): Code(s): I63.9 - Cerebral infarction, unspecified Status: Acute Assessment and Plan: as noted by evaluation at [facility] prior to transfer to [facility] continue medical management PT/OT as tolerated (3) Altered mental status: Code(s): R41.82 - Altered mental status, unspecified Status: Acute Assessment and Plan: appears to be doing better etiology not clear due to hypotension? previous CVA? other? UA on 10/09/23 suggestive of infection as is repeat testing follow-up urine culture consider empiric antibiotics follow mentation (4) Hypertension: Qualifiers: Hypertension type: primary hypertension Qualified Code(s): I10 - Essential (primary) hypertension Code(s): I10 - Essential (primary) hypertension Status: Chronic Assessment and Plan: initially low on presentation s/p IVF resuscitation and holding BP medications perhaps back to back dialysis treatments prior to presentation to [facility] was responsible BP better at this time slowly re-introduce anti-hypertensive medications as needed/tolerated (5) Anemia: Code(s): D64.9 - Anemia, unspecified Status: Chronic Assessment and Plan: due to ESRD Epogen with HD follow trend of H/H (6) Type 2 diabetes mellitus with hyperglycemia: Qualifiers: Diabetes mellitus shelter insulin use: with superintendent marine oil terminal use Qualified Code(s): E11.65 - Type 2 diabetes mellitus with hyperglycemia; Z79.4 - correction (current) use of insulin Code(s): E11.65 - Type 2 diabetes mellitus with hyperglycemia Status: Chronic Assessment and Plan: follow accu-cheks glycemic control per hospitalists Will continue to follow. Subjective Date/time seen: 10/13/23 09:51 Interval history: Follow-up for end stage renal disease on hemodialysis. Tolerated hemodialysis treatment yesterday morning without any issues or problems; working with PT/OT this morning; no acute issues/events overnight or earlier this morning. Exam Narrative: General: WD/WN female in NAD Heart: normal S1 and S2; no rub Lungs: clear to auscultation Abdomen: soft, nontender, nondistended, positive bowel sounds Extremities: no cyanosis or clubbing; no edema Skin: warm and intact Objective Data Vital Signs Vital Signs: Vital Signs Temp Pulse Resp BP Pulse Ox O2 Del Method 10/13/23 09:50 97.2 F L 67 18 147/72 H 96 10/13/23 08:50 18 92 Room Air 10/13/23 08:00 72 10/13/23 08:49 71 10/13/23 04:00 68 10/13/23 03:43 98.0 F 69 18 156/68 H 92 10/13/23 00:00 73 10/12/23 23:45 97.4 F L 75 18 145/63 H 89 L 10/12/23 20:00 74 10/12/23 19:44 98.6 F 74 18 170/83 H 94 10/12/23 16:00 97.1 F L 75 17 168/71 H 96 10/12/23 16:00 76 10/12/23 12:00 72 10/12/23 13:53 73 10/12/23 13:24 97.5 F L 71 17 145/77 H 97 10/12/23 12:45 69 154/82 H 10/12/23 12:20 71 152/74 H 10/12/23 12:00 71 164/83 H 10/12/23 11:00 68 155/80 H 10/12/23 12:50 98.2 F 71 20 159/81 H 98 10/12/23 12:40 71 156/84 H 10/12/23 11:40 69 155/80 H 10/12/23 11:20 69 159/76 H Intake/Output Intake/Output: Intake & Output 10/10/23 10/11/23 10/12/23 10/13/23 23:59 23:59 23:59 23:59 Intake Total 530 300 600 150 Output Total 0 850 Balance 530 300 -250 150 Meds/Results Medications: Active Medications Generic Name Dose Route Star
--- NOTE | 2023-10-13 09:51 | P.PNNP_ITS ---
Progress Note: A&P Assessment and Plan (1) End stage renal disease: Code(s): N18.6 - End stage renal disease Status: Chronic Assessment and Plan: * HD tomorrow * continue outpatient Thu/Thu/Thursday dialysis schedule * kidney disease due to HTN and DM * follow electrolytes, volume status, and clearance * follows with Dr. Moreno at [facility] (2) CVA (cerebral vascular accident): Code(s): I63.9 - Cerebral infarction, unspecified Status: Acute Assessment and Plan: * as noted by evaluation at [facility] prior to transfer to [facility] * continue medical management * PT/OT as tolerated (3) Altered mental status: Code(s): R41.82 - Altered mental status, unspecified Status: Acute Assessment and Plan: * appears to be doing better * etiology not clear * due to hypotension? * previous CVA? * other? * UA on 10/09/23 suggestive of infection as is repeat testing * follow-up urine culture * consider empiric antibiotics * follow mentation (4) Hypertension: Qualifiers: Hypertension type: primary hypertension Qualified Code(s): I10 - Essential (primary) hypertension Code(s): I10 - Essential (primary) hypertension Status: Chronic Assessment and Plan: * initially low on presentation * s/p IVF resuscitation and holding BP medications * perhaps back to back dialysis treatments prior to presentation to [facility] was responsible * BP better at this time * slowly re-introduce anti-hypertensive medications as needed/tolerated (5) Anemia: Code(s): D64.9 - Anemia, unspecified Status: Chronic Assessment and Plan: * due to ESRD * Epogen with HD * follow trend of H/H (6) Type 2 diabetes mellitus with hyperglycemia: Qualifiers: Diabetes mellitus detention insulin use: with detention use Qualified Code(s): E11.65 - Type 2 diabetes mellitus with hyperglycemia; Z79.4 - terminal gauger (current) use of insulin Code(s): E11.65 - Type 2 diabetes mellitus with hyperglycemia Status: Chronic Assessment and Plan: * follow accu-cheks * glycemic control per hospitalists Will continue to follow. Subjective Date/time seen: 10/13/23 09:51 Interval history: Follow-up for end stage renal disease on hemodialysis. Tolerated hemodialysis treatment yesterday morning without any issues or problems; working with PT/OT this morning; no acute issues/events overnight or earlier this morning. Exam Narrative: General: WD/WN female in NAD Heart: normal S1 and S2; no rub Lungs: clear to auscultation Abdomen: soft, nontender, nondistended, positive bowel sounds Extremities: no cyanosis or clubbing; no edema Skin: warm and intact Objective Data Vital Signs Vital Signs: Vital Signs Temp Pulse Resp BP Pulse Ox O2 Del Method 10/13/23 09:50 97.2 F L 67 18 147/72 H 96 10/13/23 08:50 18 92 Room Air 10/13/23 08:00 72 10/13/23 08:49 71 10/13/23 04:00 68 10/13/23 03:43 98.0 F 69 18 156/68 H 92 10/13/23 00:00 73 10/12/23 23:45 97.4 F L 75 18 145/63 H 89 L 10/12/23 20:00 74 10/12/23 19:44 98.6 F 74 18 170/83 H 94 10/12/23 16:00 97.1 F L 75 17 168/71 H 96
--- NOTE | 2023-10-13 10:39 | P.PNIM_ITS ---
Progress Note: A&P Assessment and Plan (1) Acute hypoxemic respiratory failure: Code(s): J96.01 - Acute respiratory failure with hypoxia Status: Acute Assessment and Plan: * currently on room air * No acute respiratory distress (2) Acute hypotension: Code(s): I95.9 - Hypotension, unspecified Status: Resolved Assessment and Plan: * In initial blood pressure was 69/33 * She was given 2 L of normal saline while in the ED with improvement of her blood pressure * Results * continue to monitor (3) Hemodialysis patient: Code(s): Z99.2 - Dependence on renal dialysis Status: Acute Assessment and Plan: * Normally Thursday dialysis * She is followed by Dr. Moreno * nephrology following * Repeat UA showing 3+ protein, 1+ glucose, 2+ urine blood, 3+ leukocytes, greater than 100 urine wbc's, 1+ bacteria. * Urine culture pending * Had HD yesterday (4) End stage renal disease: Code(s): N18.6 - End stage renal disease Status: Chronic Assessment and Plan: * See above (5) Hypertension: Qualifiers: Hypertension type: primary hypertension Qualified Code(s): I10 - Essential (primary) hypertension Code(s): I10 - Essential (primary) hypertension Status: Chronic Assessment and Plan: * Blood pressure ranging 147/72 to 156/68 * Continue hydralazine and amlodipine (6) Type 2 diabetes mellitus with hyperglycemia: Qualifiers: Diabetes mellitus terminologist insulin use: with terminologist use Qualified Code(s): E11.65 - Type 2 diabetes mellitus with hyperglycemia; Z79.4 - terminologist (current) use of insulin Code(s): E11.65 - Type 2 diabetes mellitus with hyperglycemia Status: Chronic Assessment and Plan: * Blood sugars ranging 102-145 * Hemoglobin A1c ordered for the a.m. * Continue Lantus of 36 units at HS * Continue Sliding scale insulin 12 units subQ t.i.d. with meals * Diabetic diet (7) Thrombocytopenia: Code(s): D69.6 - Thrombocytopenia, unspecified Status: Acute Assessment and Plan: * Initial platelet count 130, now 96 * Will hold heparin * continue to monitor * iron studies: iron 59, TIBC 215, 27% sat, 509 ferritin Time Spent With Patient Time with patient: 25 - 35 minutes Subjective Date/time seen: 10/13/23 10:39 Interval history: 10/11/23: This is a 58 year old female who presented to the hospital today from [place] [facility] with lethargy and hypotension. Work up in the hospital included a head CT which was negative for any acute intracranial hemorrhage, mass, or infarct, and age related changes. She also had a CXR was negative for any acute cardiopulmonary process. CTA of the chest was negative for PE, shown a 3.8 cm adrenal mass. Initial labs revealed Hgb 9.2, Hct 28.9, plt 110, pO2 55.3, ABG saturation 87.5, Na+ 134, BUN 40, creatinine 6.10, CA+ 8.3, total protein 6.0. UA shown 4+ protein, 2+ glucose, trace ketones, trace leukocytes. Respiratory panel negative for Influenza, RSV, and COVID. Hep B antigen and antibody pending. MRSA was negative. EKG shown NSR with a rate of 62, prolonged QTc. Patient was given 2L NS in the ER with improvement of her blood pressure. Nephrology was consulted. On examination today patient is alert oriented x3, lying in the bed. She denies any fever, chills, nausea, vomiting, diarrhea, abdominal pain, chest pain, shortness a breath. Labs today shown Hgb 9.4, Hct 30.7, Plt 94, Na+ 134, Bicarb 20, BUN 46, creatinine 7.10, BG ranging 102-106, Ca+ 7.7, Phos 8.8, total prot
--- NOTE | 2023-10-13 10:39 | PM.IMPN ---
Progress Note: A&P Assessment and Plan (1) Acute hypoxemic respiratory failure: Code(s): J96.01 - Acute respiratory failure with hypoxia Status: Acute Assessment and Plan: currently on room air No acute respiratory distress (2) Acute hypotension: Code(s): I95.9 - Hypotension, unspecified Status: Resolved Assessment and Plan: In initial blood pressure was 69/33 She was given 2 L of normal saline while in the ED with improvement of her blood pressure Results continue to monitor (3) Hemodialysis patient: Code(s): Z99.2 - Dependence on renal dialysis Status: Acute Assessment and Plan: Normally Thursday dialysis She is followed by Dr. Moreno nephrology following Repeat UA showing 3+ protein, 1+ glucose, 2+ urine blood, 3+ leukocytes, greater than 100 urine wbc's, 1+ bacteria. Urine culture pending Had HD yesterday (4) End stage renal disease: Code(s): N18.6 - End stage renal disease Status: Chronic Assessment and Plan: See above (5) Hypertension: Qualifiers: Hypertension type: primary hypertension Qualified Code(s): I10 - Essential (primary) hypertension Code(s): I10 - Essential (primary) hypertension Status: Chronic Assessment and Plan: Blood pressure ranging 147/72 to 156/68 Continue hydralazine and amlodipine (6) Type 2 diabetes mellitus with hyperglycemia: Qualifiers: Diabetes mellitus predatory animal exterminator insulin use: with predatory animal exterminator use Qualified Code(s): E11.65 - Type 2 diabetes mellitus with hyperglycemia; Z79.4 - shelter (current) use of insulin Code(s): E11.65 - Type 2 diabetes mellitus with hyperglycemia Status: Chronic Assessment and Plan: Blood sugars ranging 102-145 Hemoglobin A1c ordered for the a.m. Continue Lantus of 36 units at HS Continue Sliding scale insulin 12 units subQ t.i.d. with meals Diabetic diet (7) Thrombocytopenia: Code(s): D69.6 - Thrombocytopenia, unspecified Status: Acute Assessment and Plan: Initial platelet count 130, now 96 Will hold heparin continue to monitor iron studies: iron 59, TIBC 215, 27% sat, 509 ferritin Time Spent With Patient Time with patient: 25 - 35 minutes Subjective Date/time seen: 10/13/23 10:39 Interval history: 10/11/23: This is a 58 year old female who presented to the hospital today from [place] [facility] with lethargy and hypotension. Work up in the hospital included a head CT which was negative for any acute intracranial hemorrhage, mass, or infarct, and age related changes. She also had a CXR was negative for any acute cardiopulmonary process. CTA of the chest was negative for PE, shown a 3.8 cm adrenal mass. Initial labs revealed Hgb 9.2, Hct 28.9, plt 110, pO2 55.3, ABG saturation 87.5, Na+ 134, BUN 40, creatinine 6.10, CA+ 8.3, total protein 6.0. UA shown 4+ protein, 2+ glucose, trace ketones, trace leukocytes. Respiratory panel negative for Influenza, RSV, and COVID. Hep B antigen and antibody pending. MRSA was negative. EKG shown NSR with a rate of 62, prolonged QTc. Patient was given 2L NS in the ER with improvement of her blood pressure. Nephrology was consulted. On examination today patient is alert oriented x3, lying in the bed. She denies any fever, chills, nausea, vomiting, diarrhea, abdominal pain, chest pain, shortness a breath. Labs today shown Hgb 9.4, Hct 30.7, Plt 94, Na+ 134, Bicarb 20, BUN 46, creatinine 7.10, BG ranging 102-106, Ca+ 7.7, Phos 8.8, total protein 6.0, liver enzymes are normal. Plan is for HD today. 10/13/23: On examination today patient is alert to voice and oriented x3, lying in the bed. She denies any fever, chills, nausea, vomiting, diarrhea, abdominal pain, chest pain, shortness a breath. Labs revealed hemoglobin of 9.6, hematocrit 29.6, BUN 24, creatinine 3.8 EGFR 12 blood sugars ranging 104-155, total protein 6.0, albumin 3.2.
--- NOTE | 2023-10-13 10:50 | PCPTNOTE ---
Attempted to see patient for PT, however patient refused. Patient reported she feels weak today, and just tried working with OT and that it did not go well.
[2023-10-13 12:15] LABS: Glucose Point of Care 145 mg/dl (65-105)
--- NOTE | 2023-10-13 13:09 | PCCCNOTE ---
On 10/13/23, the student, [Nilsa Ponce], provided care and completed [facility] documentation on this patient. I have reviewed the student's documentation and agree with the findings.
--- NOTE | 2023-10-13 14:19 | PCPTNOTE ---
Attempted to see patient for PT, however patient declined due to not feeling well.
[2023-10-13 17:16] LABS: Glucose Point of Care 101 mg/dl (65-105)
[2023-10-13 20:35] LABS: Glucose Point of Care 268 mg/dl (65-105)
[2023-10-13] MEDS: ATORVASTATIN 40 MG TABLET 80 MG PO (20:45)
[2023-10-13] MEDS: INSULIN GLARGINE (*BKC) 100 UNITS/ML 32 UNITS SUB-Q (20:47)
[2023-10-13] MEDS: rOPINIRole HCL 0.25 MG TABLET PO (20:48)
[2023-10-13] MEDS: AMITRIPTYLINE HCL 25 MG TABLET PO (20:48)
[2023-10-14] VITALS (25 sets, daily range): BP systolic 131–162; BP diastolic 64–85; PULSE 67–75; RESP 16–20; TEMP 35.4–37; O2SAT 86–98
[2023-10-14 05:40] LABS: Basophils Percent Auto 0.3 % (0.2-1.2); Eosinophils Absolute Auto 0.2 K/mm3 (0-0.3); Eosinophils Percent Auto 2.6 % (0-4.4); Hematocrit 30.3 % (37.0-47.0); Hemoglobin 9.8 g/dL (12.0-15.0); Immature Granulocyte Absolute 0.04 K/mm3 (0.00-0.031); Immature Granulocyte Percent A 0.5 % (0-0.5); Lymphocytes Percent Auto 10.3 % (18.3-44.2); Mean Corpuscular HGB Conc 32.3 g/dl (32-36); Mean Corpuscular Hemoglobin 31.2 pg (26-34); Mean Corpuscular Volume 96.5 fl (80-100); Mean Platelet Volume 10.9 fl (7.4-10.4); Monocytes Absolute Auto 0.9 K/mm3 (0.1-0.6); Monocytes Percent Auto 10.4 % (2.6-8.5); Neutrophils Absolute Auto 6.6 K/mm3 (1.3-6.7); Neutrophils Percent Auto 75.9 % (45.5-73.1); Platelet Count Result 110 k/mm3 (150-375); Red Blood Count 3.14 M/mm3 (4.2-5.4); Red Cell Distribution Width 17.1 % (11.5-14.5); White Blood Count 8.7 K/mm3 (4.5-10.0)
[2023-10-14 06:01] LABS: Alanine Aminotransferase 12 U/L (6-35); Albumin Level 3.6 g/dL (3.5-5.1); Alkaline Phosphatase 71 U/L (38-126); Anion Gap 7 mmol/L (8-16); Aspartate Amino Transferase 17 U/L (14-36); Bilirubin,Total 0.5 mg/dL (0.2-1.3); Blood Urea Nitrogen 35 mg/dL (7-17); Calcium 8.7 mg/dL (8.4-10.2); Carbon Dioxide 28 mmol/L (22-30); Chloride 102 mmol/L (98-107); Estimated CRCL calculation 12 ml/min; Estimated Glomerular Filt Rate 8; Glucose 68 mg/dL (65-110); Potassium 4.5 mmol/L (3.4-5.0); Sodium 137 mmol/L (137-145)
--- NOTE | 2023-10-14 07:26 | P.PNIM_ITS ---
Progress Note: A&P Assessment and Plan (1) Acute hypoxemic respiratory failure: Code(s): J96.01 - Acute respiratory failure with hypoxia Status: Acute Assessment and Plan: * currently on room air * No acute respiratory distress (2) Hemodialysis patient: Code(s): Z99.2 - Dependence on renal dialysis Status: Acute Assessment and Plan: * Normally Thursday dialysis * She is followed by Dr. Moreno * nephrology following * Repeat UA showing 3+ protein, 1+ glucose, 2+ urine blood, 3+ leukocytes, greater than 100 urine wbc's, 1+ bacteria. * Urine culture pending * HD today (3) End stage renal disease: Code(s): N18.6 - End stage renal disease Status: Chronic Assessment and Plan: * See above (4) Hypertension: Qualifiers: Hypertension type: primary hypertension Qualified Code(s): I10 - Essential (primary) hypertension Code(s): I10 - Essential (primary) hypertension Status: Chronic Assessment and Plan: * Blood pressure ranging 147/72 to 156/68 * Continue hydralazine and amlodipine (5) Type 2 diabetes mellitus with hyperglycemia: Qualifiers: Diabetes mellitus [facility] insulin use: with [facility] use Qualified Code(s): E11.65 - Type 2 diabetes mellitus with hyperglycemia; Z79.4 - supervisor intermediates (current) use of insulin Code(s): E11.65 - Type 2 diabetes mellitus with hyperglycemia Status: Chronic Assessment and Plan: * Blood sugars ranging 102-145 * Hemoglobin A1c ordered for the a.m. * Continue Lantus of 36 units at HS * Continue Sliding scale insulin 12 units subQ t.i.d. with meals * Diabetic diet (6) Thrombocytopenia: Code(s): D69.6 - Thrombocytopenia, unspecified Status: Acute Assessment and Plan: * Initial platelet count 130, now 110 * Heparin on hold * continue to monitor * iron studies: iron 59, TIBC 215, 27% sat, 509 ferritin Time Spent With Patient Time with patient: 25 - 35 minutes Subjective Date/time seen: 10/14/23 07:26 Interval history: 10/11/23: This is a 58 year old female who presented to the hospital today from [facility] rehab with lethargy and hypotension. Work up in the hospital included a head CT which was negative for any acute intracranial hemorrhage, mass, or infarct, and age related changes. She also had a CXR was negative for any acute cardiopulmonary process. CTA of the chest was negative for PE, shown a 3.8 cm adrenal mass. Initial labs revealed Hgb 9.2, Hct 28.9, plt 110, pO2 55.3, ABG saturation 87.5, Na+ 134, BUN 40, creatinine 6.10, CA+ 8.3, total protein 6.0. UA shown 4+ protein, 2+ glucose, trace ketones, trace leukocytes. Respiratory panel negative for Influenza, RSV, and COVID. Hep B antigen and antibody pending. MRSA was negative. EKG shown NSR with a rate of 62, prolonged QTc. Pat ient was given 2L NS in the ER with improvement of her blood pressure. Nephrology was consulted. On examination today patient is alert oriented x3, lying in the bed. She denies any fever, chills, nausea, vomiting, diarrhea, abdominal pain, chest pain, shortness a breath. Labs today shown Hgb 9.4, Hct 30.7, Plt 94, Na+ 134, Bicarb 20, BUN 46, creatinine 7.10, BG ranging 102-106, Ca+ 7.7, Phos 8.8, total protein 6.0, liver enzymes are normal. Plan is for HD today. 10/13/23: On examination today patient is alert to voice and oriented x3, lying in the bed. She denies any fever, chills, nausea, vomiting, diarrhea, abdominal pain, chest pain, shortness a breath. Labs revealed hemoglobin of 9.6, hematocrit 29.6, BUN 24, creat
--- NOTE | 2023-10-14 07:26 | PM.IMPN ---
Progress Note: A&P Assessment and Plan (1) Acute hypoxemic respiratory failure: Code(s): J96.01 - Acute respiratory failure with hypoxia Status: Acute Assessment and Plan: currently on room air No acute respiratory distress (2) Hemodialysis patient: Code(s): Z99.2 - Dependence on renal dialysis Status: Acute Assessment and Plan: Normally Thursday dialysis She is followed by Dr. Moreno nephrology following Repeat UA showing 3+ protein, 1+ glucose, 2+ urine blood, 3+ leukocytes, greater than 100 urine wbc's, 1+ bacteria. Urine culture pending HD today (3) End stage renal disease: Code(s): N18.6 - End stage renal disease Status: Chronic Assessment and Plan: See above (4) Hypertension: Qualifiers: Hypertension type: primary hypertension Qualified Code(s): I10 - Essential (primary) hypertension Code(s): I10 - Essential (primary) hypertension Status: Chronic Assessment and Plan: Blood pressure ranging 147/72 to 156/68 Continue hydralazine and amlodipine (5) Type 2 diabetes mellitus with hyperglycemia: Qualifiers: Diabetes mellitus intermediate manager insulin use: with assisted use Qualified Code(s): E11.65 - Type 2 diabetes mellitus with hyperglycemia; Z79.4 - watermelon harvesting supervisor (current) use of insulin Code(s): E11.65 - Type 2 diabetes mellitus with hyperglycemia Status: Chronic Assessment and Plan: Blood sugars ranging 102-145 Hemoglobin A1c ordered for the a.m. Continue Lantus of 36 units at HS Continue Sliding scale insulin 12 units subQ t.i.d. with meals Diabetic diet (6) Thrombocytopenia: Code(s): D69.6 - Thrombocytopenia, unspecified Status: Acute Assessment and Plan: Initial platelet count 130, now 110 Heparin on hold continue to monitor iron studies: iron 59, TIBC 215, 27% sat, 509 ferritin Time Spent With Patient Time with patient: 25 - 35 minutes Subjective Date/time seen: 10/14/23 07:26 Interval history: 10/11/23: This is a 58 year old female who presented to the hospital today [facility] with lethargy and hypotension. Work up in the hospital included a head CT which was negative for any acute intracranial hemorrhage, mass, or infarct, and age related changes. She also had a CXR was negative for any acute cardiopulmonary process. CTA of the chest was negative for PE, shown a 3.8 cm adrenal mass. Initial labs revealed Hgb 9.2, Hct 28.9, plt 110, pO2 55.3, ABG saturation 87.5, Na+ 134, BUN 40, creatinine 6.10, CA+ 8.3, total protein 6.0. UA shown 4+ protein, 2+ glucose, trace ketones, trace leukocytes. Respiratory panel negative for Influenza, RSV, and COVID. Hep B antigen and antibody pending. MRSA was negative. EKG shown NSR with a rate of 62, prolonged QTc. Patient was given 2L NS in the ER with improvement of her blood pressure. Nephrology was consulted. On examination today patient is alert oriented x3, lying in the bed. She denies any fever, chills, nausea, vomiting, diarrhea, abdominal pain, chest pain, shortness a breath. Labs today shown Hgb 9.4, Hct 30.7, Plt 94, Na+ 134, Bicarb 20, BUN 46, creatinine 7.10, BG ranging 102-106, Ca+ 7.7, Phos 8.8, total protein 6.0, liver enzymes are normal. Plan is for HD today. 10/13/23: On examination today patient is alert to voice and oriented x3, lying in the bed. She denies any fever, chills, nausea, vomiting, diarrhea, abdominal pain, chest pain, shortness a breath. Labs revealed hemoglobin of 9.6, hematocrit 29.6, BUN 24, creatinine 3.8 EGFR 12 blood sugars ranging 104-155, total protein 6.0, albumin 3.2. A UA was performed yesterday which shown 3+ protein, 1+ glucose, 2+ urine blood, 3+ leukocytes, greater than 100 urine wbc's, 1+ bacteria, moderate urine squamous epithelial cells seen. Urine has been sent for culture and is pending. Patient denies any symptoms of a urinary tract infection at th
[2023-10-14 08:16] LABS: Glucose Point of Care 97 mg/dl (65-105)
--- NOTE | 2023-10-14 08:37 | PCOTNOTE ---
The patient treatment was not able to be completed. Patient out of the room for HD. Will plan to continue treatment per plan of care.
[2023-10-14] MEDS: EPOETIN ALFA-EPBX 10,000 UNITS/ML VIAL 10000 UNITS IV PUSH (11:17)
[2023-10-14 11:18] LABS: Hemoglobin A1C 6.2 % (<5.7)
[2023-10-14] MEDS: SODIUM CHLORIDE 0.9% IV 1,000 ML 999 ML IV CONT (11:18)
[2023-10-14] MEDS: HEPARIN SODIUM 1,000 UNITS/ML VIAL 5000 UNITS (11:18)
--- NOTE | 2023-10-14 11:33 | PCPTNOTE ---
Attempted to see patient for PT, however patient was out of the room for dialysis.
--- NOTE | 2023-10-14 12:00 | P.PNNP_ITS ---
Progress Note: A&P Assessment and Plan (1) End stage renal disease: Code(s): N18.6 - End stage renal disease Status: Chronic Assessment and Plan: * HD today * continue outpatient Thu/Thu/Thursday dialysis schedule * kidney disease due to HTN and DM * follow electrolytes, volume status, and clearance * follows with Dr. Moreno at [facility] (2) CVA (cerebral vascular accident): Code(s): I63.9 - Cerebral infarction, unspecified Status: Acute Assessment and Plan: * as noted by evaluation at [facility] prior to transfer to [facility] * continue medical management * PT/OT as tolerated (3) Altered mental status: Code(s): R41.82 - Altered mental status, unspecified Status: Acute Assessment and Plan: * appears to be doing better * etiology not clear * due to hypotension? * previous CVA? * other? * UA on 10/09/23 suggestive of infection as is repeat testing * follow-up urine culture * consider empiric antibiotics (although asymptomatic) * follow mentation (4) Hypertension: Qualifiers: Hypertension type: primary hypertension Qualified Code(s): I10 - Essential (primary) hypertension Code(s): I10 - Essential (primary) hypertension Status: Chronic Assessment and Plan: * initially low on presentation * s/p IVF resuscitation and holding BP medications * perhaps back to back dialysis treatments prior to presentation to [facility] was responsible * BP better at this time * slowly re-introduce anti-hypertensive medications as needed/tolerated (5) Anemia: Code(s): D64.9 - Anemia, unspecified Status: Chronic Assessment and Plan: * due to ESRD * Epogen with HD * follow trend of H/H (6) Type 2 diabetes mellitus with hyperglycemia: Qualifiers: Diabetes mellitus intermediate designer insulin use: with intermediate designer use Qualified Code(s): E11.65 - Type 2 diabetes mellitus with hyperglycemia; Z79.4 - prison (current) use of insulin Code(s): E11.65 - Type 2 diabetes mellitus with hyperglycemia Status: Chronic Assessment and Plan: * follow accu-cheks * glycemic control per hospitalists Will continue to follow. Subjective Date/time seen: 10/14/23 12:00 Interval history: Follow-up for end stage renal disease on hemodialysis. Tolerating dialysis treatment at the time of my visit (seen on HD at 11:50AM); seems to be doing relatively well; no apparent distress noted; working with PT/OT as tolerated; no other issues/events overnight or earlier this morning. Exam Narrative: General: WD/WN female in NAD Heart: normal S1 and S2; no rub Lungs: clear to auscultation Abdomen: soft, nontender, nondistended, positive bowel sounds Extremities: no cyanosis or clubbing; no edema Skin: no rash Objective Data Vital Signs Vital Signs: Vital Signs Temp Pulse Resp BP Pulse Ox O2 Del Method 10/14/23 11:45 75 10/14/23 08:26 98.2 F 74 16 162/85 H 98 10/14/23 06:00 97.4 F L 70 18 154/64 H 93 10/14/23 04:00 69 10/14/23 01:43 97.6 F 67 20 160/73 H 92 10/14/23 00:00 67 10/13/23 20:00 67 10/13/23 21:12 97.7 F 66 18 146/66 H 95 10/13/23 20:37 Room Air 10/13/23 16:22 98.1 F 66 18 125/79 95
--- NOTE | 2023-10-14 12:00 | PM.PNNEP ---
Progress Note: A&P Assessment and Plan (1) End stage renal disease: Code(s): N18.6 - End stage renal disease Status: Chronic Assessment and Plan: HD today continue outpatient Thu/Thu/Thursday dialysis schedule kidney disease due to HTN and DM follow electrolytes, volume status, and clearance follows with Dr. Moreno at [facility] (2) CVA (cerebral vascular accident): Code(s): I63.9 - Cerebral infarction, unspecified Status: Acute Assessment and Plan: as noted by evaluation at [facility] prior to transfer to [facility] continue medical management PT/OT as tolerated (3) Altered mental status: Code(s): R41.82 - Altered mental status, unspecified Status: Acute Assessment and Plan: appears to be doing better etiology not clear due to hypotension? previous CVA? other? UA on 10/09/23 suggestive of infection as is repeat testing follow-up urine culture consider empiric antibiotics (although asymptomatic) follow mentation (4) Hypertension: Qualifiers: Hypertension type: primary hypertension Qualified Code(s): I10 - Essential (primary) hypertension Code(s): I10 - Essential (primary) hypertension Status: Chronic Assessment and Plan: initially low on presentation s/p IVF resuscitation and holding BP medications perhaps back to back dialysis treatments prior to presentation to [facility] was responsible BP better at this time slowly re-introduce anti-hypertensive medications as needed/tolerated (5) Anemia: Code(s): D64.9 - Anemia, unspecified Status: Chronic Assessment and Plan: due to ESRD Epogen with HD follow trend of H/H (6) Type 2 diabetes mellitus with hyperglycemia: Qualifiers: Diabetes mellitus fpc insulin use: with fpc use Qualified Code(s): E11.65 - Type 2 diabetes mellitus with hyperglycemia; Z79.4 - senior care (current) use of insulin Code(s): E11.65 - Type 2 diabetes mellitus with hyperglycemia Status: Chronic Assessment and Plan: follow accu-cheks glycemic control per hospitalists Will continue to follow. Subjective Date/time seen: 10/14/23 12:00 Interval history: Follow-up for end stage renal disease on hemodialysis. Tolerating dialysis treatment at the time of my visit (seen on HD at 11:50AM); seems to be doing relatively well; no apparent distress noted; working with PT/OT as tolerated; no other issues/events overnight or earlier this morning. Exam Narrative: General: WD/WN female in NAD Heart: normal S1 and S2; no rub Lungs: clear to auscultation Abdomen: soft, nontender, nondistended, positive bowel sounds Extremities: no cyanosis or clubbing; no edema Skin: no rash Objective Data Vital Signs Vital Signs: Vital Signs Temp Pulse Resp BP Pulse Ox O2 Del Method 10/14/23 11:45 75 10/14/23 08:26 98.2 F 74 16 162/85 H 98 10/14/23 06:00 97.4 F L 70 18 154/64 H 93 10/14/23 04:00 69 10/14/23 01:43 97.6 F 67 20 160/73 H 92 10/14/23 00:00 67 10/13/23 20:00 67 10/13/23 21:12 97.7 F 66 18 146/66 H 95 10/13/23 20:37 Room Air 10/13/23 16:22 98.1 F 66 18 125/79 95 10/13/23 16:00 67 Intake/Output Intake/Output: Intake & Output 10/11/23 10/12/23 10/13/23 10/14/23 23:59 23:59 23:59 23:59 Intake Total 300 600 690 250 Output Total 850 150 Balance 300 -250 540 250 Meds/Results Medications: Active Medications Generic Name Dose Route Start Last Admin Trade Name Freq PRN Reason Stop Dose Admin Acetaminophen 650 mg 10/10/23 00:34 10/11/23 20:51 Acetaminophen 325 Mg Tablet BY MOUTH 650 mg Q6H PRN Administration mild pain 1-3 Albuterol 2 puff 10/10/23 00:23 Albuterol Sulfate (*Sp) Aerosol 1 Puff INHALATION Q4H PRN Wheezing Amitriptyline HCl 25 mg
[2023-10-14] MEDS: SEVELAMER CARBONATE 800 MG TABLET PO ×2 (12:44→17:17)
[2023-10-14] MEDS: LIPASE/AMYLASE/PROTEASE 12,000 UNITS CAP 8 CAP PO ×2 (12:44→17:16)
[2023-10-14] MEDS: SERTRALINE HCL 50 MG TABLET 150 MG PO (12:44)
[2023-10-14] MEDS: OMEGA 3 POLYUNSAT FATTY ACIDS 1 GM CAP BY MOUTH ×2 (12:45→17:16)
[2023-10-14] MEDS: ASPIRIN 81 MG CHEWABLE TABLET PO (12:45)
[2023-10-14] MEDS: METOPROLOL SUCCINATE EXT REL 50 MG TABCR PO (12:45)
[2023-10-14] MEDS: LOSARTAN POTASSIUM 50 MG TABLET PO (12:45)
[2023-10-14] MEDS: MECLIZINE HCL 12.5 MG TABLET PO ×3 (12:45→20:33)
[2023-10-14] MEDS: GABAPENTIN 300 MG CAPSULE PO ×2 (12:45→17:16)
[2023-10-14] MEDS: amLODIPine BESYLATE 5 MG TABLET 10 MG PO (12:45)
[2023-10-14] MEDS: CLOPIDOGREL BISULFATE 75 MG TABLET PO (12:45)
[2023-10-14] MEDS: METOCLOPRAMIDE HCL 5 MG TABLET PO ×2 (12:45→17:16)
[2023-10-14 12:54] LABS: Glucose Point of Care 91 mg/dl (65-105)
[2023-10-14] MEDS: DOCUSATE SODIUM 100 MG CAPSULE PO (17:16)
[2023-10-14] MEDS: INSULIN ASPART (*BKC) 100 UNITS/ML SUB-Q (17:20)
[2023-10-14 17:24] LABS: Glucose Point of Care 201 mg/dl (65-105)
[2023-10-14] MEDS: AMITRIPTYLINE HCL 25 MG TABLET PO (20:32)
[2023-10-14] MEDS: ATORVASTATIN 40 MG TABLET 80 MG PO (20:32)
[2023-10-14] MEDS: rOPINIRole HCL 0.25 MG TABLET PO (20:32)
[2023-10-14 21:21] LABS: Glucose Point of Care 171 mg/dl (65-105)
[2023-10-15] VITALS (9 sets, daily range): BP systolic 122–153; BP diastolic 54–74; PULSE 61–70; RESP 14–20; TEMP 36.4–37.1; O2SAT 92–96
[2023-10-15 06:04] LABS: Basophils Percent Auto 0.6 % (0.2-1.2); Eosinophils Absolute Auto 0.2 K/mm3 (0-0.3); Eosinophils Percent Auto 4.5 % (0-4.4); Hematocrit 28.8 % (37.0-47.0); Hemoglobin 9.3 g/dL (12.0-15.0); Immature Granulocyte Absolute 0.02 K/mm3 (0.00-0.031); Immature Granulocyte Percent A 0.4 % (0-0.5); Lymphocytes Absolute Auto 1.05 K/mm3 (0.9-3.2); Lymphocytes Percent Auto 20.4 % (18.3-44.2); Mean Corpuscular HGB Conc 32.3 g/dl (32-36); Mean Corpuscular Hemoglobin 31.4 pg (26-34); Mean Corpuscular Volume 97.3 fl (80-100); Mean Platelet Volume 10.2 fl (7.4-10.4); Monocytes Absolute Auto 0.6 K/mm3 (0.1-0.6); Monocytes Percent Auto 12.3 % (2.6-8.5); Neutrophils Absolute Auto 3.2 K/mm3 (1.3-6.7); Neutrophils Percent Auto 61.8 % (45.5-73.1); Platelet Count Result 106 k/mm3 (150-375); Red Blood Count 2.96 M/mm3 (4.2-5.4); Red Cell Distribution Width 17.2 % (11.5-14.5); White Blood Count 5.1 K/mm3 (4.5-10.0)
[2023-10-15 06:24] LABS: Alanine Aminotransferase 10 U/L (6-35); Albumin Level 3.1 g/dL (3.5-5.1); Alkaline Phosphatase 65 U/L (38-126); Anion Gap 4 mmol/L (8-16); Aspartate Amino Transferase 15 U/L (14-36); Bilirubin,Total 0.5 mg/dL (0.2-1.3); Blood Urea Nitrogen 22 mg/dL (7-17); Calcium 8.2 mg/dL (8.4-10.2); Carbon Dioxide 29 mmol/L (22-30); Chloride 103 mmol/L (98-107); Estimated CRCL calculation 16 ml/min; Estimated Glomerular Filt Rate 12; Glucose 107 mg/dL (65-110); Potassium 4.3 mmol/L (3.4-5.0); Sodium 136 mmol/L (137-145)
[2023-10-15 07:56] LABS: Glucose Point of Care 113 mg/dl (65-105)
[2023-10-15] MEDS: OMEGA 3 POLYUNSAT FATTY ACIDS 1 GM CAP BY MOUTH ×2 (09:24→18:44)
[2023-10-15] MEDS: LIPASE/AMYLASE/PROTEASE 12,000 UNITS CAP 8 CAP PO ×3 (09:24→18:42)
[2023-10-15] MEDS: INSULIN ASPART (*BKC) 100 UNITS/ML 12 UNITS SUB-Q ×3 (09:24→18:43)
[2023-10-15] MEDS: SERTRALINE HCL 50 MG TABLET 150 MG PO (09:25)
[2023-10-15] MEDS: ASPIRIN 81 MG CHEWABLE TABLET PO (09:25)
[2023-10-15] MEDS: METOPROLOL SUCCINATE EXT REL 50 MG TABCR PO (09:25)
[2023-10-15] MEDS: SEVELAMER CARBONATE 800 MG TABLET PO ×3 (09:25→18:44)
[2023-10-15] MEDS: CLOPIDOGREL BISULFATE 75 MG TABLET PO (09:26)
[2023-10-15] MEDS: METOCLOPRAMIDE HCL 5 MG TABLET PO ×3 (09:26→18:44)
[2023-10-15] MEDS: DOCUSATE SODIUM 100 MG CAPSULE PO ×2 (09:26→18:43)
[2023-10-15] MEDS: amLODIPine BESYLATE 5 MG TABLET 10 MG PO (09:26)
[2023-10-15] MEDS: MECLIZINE HCL 12.5 MG TABLET PO ×4 (09:26→21:40)
[2023-10-15] MEDS: GABAPENTIN 300 MG CAPSULE PO ×2 (09:26→18:42)
[2023-10-15] MEDS: LOSARTAN POTASSIUM 50 MG TABLET PO (09:26)
[2023-10-15] MEDS: polyethylene glycoL 3350 17 GM POWD.PACK PO (09:39)
[2023-10-15 12:04] LABS: Glucose Point of Care 185 mg/dl (65-105)
--- NOTE | 2023-10-15 12:45 | P.PNNP_ITS ---
Progress Note: A&P Assessment and Plan (1) End stage renal disease: Code(s): N18.6 - End stage renal disease Status: Chronic Assessment and Plan: * HD tomorrow * continue outpatient Thu/Thu/Thursday dialysis schedule * kidney disease due to HTN and DM * follow electrolytes, volume status, and clearance * follows with Dr. Moreno at [facility] (2) CVA (cerebral vascular accident): Code(s): I63.9 - Cerebral infarction, unspecified Status: Acute Assessment and Plan: * as noted by evaluation at [facility] prior to transfer to [facility] * continue medical management * PT/OT as tolerated (3) Altered mental status: Code(s): R41.82 - Altered mental status, unspecified Status: Acute Assessment and Plan: * appears to be doing better * etiology not clear * due to hypotension? * previous CVA? * infection (UTI?) - urine culture noted but asymptomatic * follow mentation (4) Hypertension: Qualifiers: Hypertension type: primary hypertension Qualified Code(s): I10 - Ess ential (primary) hypertension Code(s): I10 - Essential (primary) hypertension Status: Chronic Assessment and Plan: * initially low on presentation * s/p IVF resuscitation and holding BP medications * perhaps back to back dialysis treatments prior to presentation to [facility] was responsible * BP better at this time * slowly re-introduce anti-hypertensive medications as needed/tolerated (5) Anemia: Code(s): D64.9 - Anemia, unspecified Status: Chronic Assessment and Plan: * due to ESRD * Epogen with HD * follow trend of H/H (6) Type 2 diabetes mellitus with hyperglycemia: Qualifiers: Diabetes mellitus senior care insulin use: with intermodal customer service use Qualified Code(s): E11.65 - Type 2 diabetes mellitus with hyperglycemia; Z79.4 - [facility] (current) use of insulin Code(s): E11.65 - Type 2 diabetes mellitus with hyperglycemia Status: Chronic Assessment and Plan: * follow accu-cheks * glycemic control per hospitalists Will continue to follow. Subjective Date/time seen: 10/15/23 12:45 Interval history: Follow-up for end stage renal disease on hemodialysis. Tolerated dialysis treatment yesterday without any issues or problems; only major complaint is that of constipation/lack of a bowel movement; no issues overnight or earlier this AM; no apparent distress noted at the time of my visit. Exam Narrative: General: WD/WN female in NAD Heart: normal S1 and S2; no rub Lungs: clear to auscultation Abdomen: soft, nontender, nondistended, positive bowel sounds Extremities: no cyanosis or clubbing; no edema Skin: no nodules Objective Data Vital Signs Vital Signs: Vital Signs Temp Pulse Resp BP Pulse Ox O2 Del Method O2 Flow Rate 10/15/23 08:00 Room Air 10/15/23 09:25 68 10/15/23 09:19 68 14 133/66 94 10/15/23 05:29 97.6 F 68 18 151/64 H 92 10/15/23 02:00 97.9 F 70 20 153/72 H 94 10/14/23 20:00 73 16 93 Nasal Cannula 1 10/14/23 20:50 97.7 F 73 16 131/70 86 L 10/14/23 18:34 97.6 F 72 18 151/74 H 93 10/14/23 14:37 97.2 F L 73 18 147/70 H 98 Intake/Output Intake/Output:
--- NOTE | 2023-10-15 12:45 | PM.PNNEP ---
Progress Note: A&P Assessment and Plan (1) End stage renal disease: Code(s): N18.6 - End stage renal disease Status: Chronic Assessment and Plan: HD tomorrow continue outpatient Thu/Thu/Thursday dialysis schedule kidney disease due to HTN and DM follow electrolytes, volume status, and clearance follows with Dr. Moreno at [facility] (2) CVA (cerebral vascular accident): Code(s): I63.9 - Cerebral infarction, unspecified Status: Acute Assessment and Plan: as noted by evaluation at [facility] prior to transfer to [facility] continue medical management PT/OT as tolerated (3) Altered mental status: Code(s): R41.82 - Altered mental status, unspecified Status: Acute Assessment and Plan: appears to be doing better etiology not clear due to hypotension? previous CVA? infection (UTI?) - urine culture noted but asymptomatic follow mentation (4) Hypertension: Qualifiers: Hypertension type: primary hypertension Qualified Code(s): I10 - Essential (primary) hypertension Code(s): I10 - Essential (primary) hypertension Status: Chronic Assessment and Plan: initially low on presentation s/p IVF resuscitation and holding BP medications perhaps back to back dialysis treatments prior to presentation to [facility] was responsible BP better at this time slowly re-introduce anti-hypertensive medications as needed/tolerated (5) Anemia: Code(s): D64.9 - Anemia, unspecified Status: Chronic Assessment and Plan: due to ESRD Epogen with HD follow trend of H/H (6) Type 2 diabetes mellitus with hyperglycemia: Qualifiers: Diabetes mellitus intermediate manager insulin use: with group home use Qualified Code(s): E11.65 - Type 2 diabetes mellitus with hyperglycemia; Z79.4 - half-way (current) use of insulin Code(s): E11.65 - Type 2 diabetes mellitus with hyperglycemia Status: Chronic Assessment and Plan: follow accu-cheks glycemic control per hospitalists Will continue to follow. Subjective Date/time seen: 10/15/23 12:45 Interval history: Follow-up for end stage renal disease on hemodialysis. Tolerated dialysis treatment yesterday without any issues or problems; only major complaint is that of constipation/lack of a bowel movement; no issues overnight or earlier this AM; no apparent distress noted at the time of my visit. Exam Narrative: General: WD/WN female in NAD Heart: normal S1 and S2; no rub Lungs: clear to auscultation Abdomen: soft, nontender, nondistended, positive bowel sounds Extremities: no cyanosis or clubbing; no edema Skin: no nodules Objective Data Vital Signs Vital Signs: Vital Signs Temp Pulse Resp BP Pulse Ox O2 Del Method O2 Flow Rate 10/15/23 08:00 Room Air 10/15/23 09:25 68 10/15/23 09:19 68 14 133/66 94 10/15/23 05:29 97.6 F 68 18 151/64 H 92 10/15/23 02:00 97.9 F 70 20 153/72 H 94 10/14/23 20:00 73 16 93 Nasal Cannula 1 10/14/23 20:50 97.7 F 73 16 131/70 86 L 10/14/23 18:34 97.6 F 72 18 151/74 H 93 10/14/23 14:37 97.2 F L 73 18 147/70 H 98 Intake/Output Intake/Output: Intake & Output 10/12/23 10/13/23 10/14/23 10/15/23 23:59 23:59 23:59 23:59 Intake Total 600 690 730 590 Output Total 850 150 750 Balance -250 540 -20 590 Meds/Results Medications: Active Medications Generic Name Dose Route Start Last Admin Trade Name Freq PRN Reason Stop Dose Admin Acetaminophen 650 mg 10/10/23 00:34 10/11/23 20:51 Acetaminophen 325 Mg Tablet BY MOUTH 650 mg Q6H PRN Administration mild pain 1-3 Albuterol 2 puff 10/10/23 00:23 Albuterol Sulfate (*Sp) Aerosol 1 Puff INHALATION Q4H PRN Wheezing Amitriptyline HCl 25 mg 10/10/23 21:00 10/14/23 20:32 Amitriptyline Hcl 25 Mg Tablet PO 25 mg
[2023-10-15] MEDS: MAGNESIUM CITRATE 300 ML BTL 150 ML PO (13:24)
--- NOTE | 2023-10-15 14:40 | PCCCNOTE ---
On 10/15/23, the student, [Nilsa Ponce], provided care and completed [facility] documentation on this patient. I have reviewed the student's documentation and agree with the findings.
--- NOTE | 2023-10-15 14:44 | PM.IMPN ---
Progress Note: A&P Assessment and Plan (1) Hemodialysis patient: Code(s): Z99.2 - Dependence on renal dialysis Status: Acute Assessment and Plan: 10/14/23 Normally Thursday dialysis She is followed by Dr. Moreno nephrology following Repeat UA showing 3+ protein, 1+ glucose, 2+ urine blood, 3+ leukocytes, greater than 100 urine wbc's, 1+ bacteria. Urine culture pending HD today 10/15/23 Will get dialysis tomorrow Urine culture showing Proteus mirabilis however patient is not having symptoms of a UTI unlikely this is a colonization. (2) End stage renal disease: Code(s): N18.6 - End stage renal disease Status: Chronic Assessment and Plan: See above (3) Hypertension: Qualifiers: Hypertension type: primary hypertension Qualified Code(s): I10 - Essential (primary) hypertension Code(s): I10 - Essential (primary) hypertension Status: Chronic Assessment and Plan: Blood pressure ranging 147/72 to 156/68 Continue hydralazine and amlodipine 10/15/23: No change to current treatment plan (4) Type 2 diabetes mellitus with hyperglycemia: Qualifiers: Diabetes mellitus residential insulin use: with ocean transportation intermediary use Qualified Code(s): E11.65 - Type 2 diabetes mellitus with hyperglycemia; Z79.4 - [facility] (current) use of insulin Code(s): E11.65 - Type 2 diabetes mellitus with hyperglycemia Status: Chronic Assessment and Plan: Blood sugars ranging 102-145 Hemoglobin A1c ordered for the a.m. Continue Lantus of 36 units at HS Continue Sliding scale insulin 12 units subQ t.i.d. with meals Diabetic diet 10/15/23: No change to current treatment plan Hemoglobin A1c 6.2 (5) Thrombocytopenia: Code(s): D69.6 - Thrombocytopenia, unspecified Status: Acute Assessment and Plan: Initial platelet count 130, now 110 Heparin on hold continue to monitor iron studies: iron 59, TIBC 215, 27% sat, 509 ferritin 10/15/23: Platelet count 106 Will check a vitamin B12 in the morning (6) Constipation: Code(s): K59.00 - Constipation, unspecified Status: Acute Assessment and Plan: 10/15/23: Given Mag citrate x1 today as patient has not had a bowel movement in the last 12 days If no improvement may consider a KUB Time Spent With Patient Time with patient: 25 - 35 minutes Subjective Date/time seen: 10/15/23 14:44 Interval history: 10/11/23: This is a 58 year old female who presented to the hospital today from [place] [facility] with lethargy and hypotension. Work up in the hospital included a head CT which was negative for any acute intracranial hemorrhage, mass, or infarct, and age related changes. She also had a CXR was negative for any acute cardiopulmonary process. CTA of the chest was negative for PE, shown a 3.8 cm adrenal mass. Initial labs revealed Hgb 9.2, Hct 28.9, plt 110, pO2 55.3, ABG saturation 87.5, Na+ 134, BUN 40, creatinine 6.10, CA+ 8.3, total protein 6.0. UA shown 4+ protein, 2+ glucose, trace ketones, trace leukocytes. Respiratory panel negative for Influenza, RSV, and COVID. Hep B antigen and antibody pending. MRSA was negative. EKG shown NSR with a rate of 62, prolonged QTc. Patient was given 2L NS in the ER with improvement of her blood pressure. Nephrology was consulted. On examination today patient is alert oriented x3, lying in the bed. She denies any fever, chills, nausea, vomiting, diarrhea, abdominal pain, chest pain, shortness a breath. Labs today shown Hgb 9.4, Hct 30.7, Plt 94, Na+ 134, Bicarb 20, BUN 46, creatinine 7.10, BG ranging 102-106, Ca+ 7.7, Phos 8.8, total protein 6.0, liver enzymes are normal. Plan is for HD today. 10/13/23: On examination today patient is alert to voice and oriented x3, lying in the bed. She denies any fever, chills, nausea, vomiting, diarrhea, abdominal pain, chest pain, shortness a breath. Labs revealed hemoglobin of 9.6, hematoc
--- NOTE | 2023-10-15 14:44 | P.PNIM_ITS ---
Progress Note: A&P Assessment and Plan (1) Hemodialysis patient: Code(s): Z99.2 - Dependence on renal dialysis Status: Acute Assessment and Plan: 10/14/23 * Normally Thursday dialysis * She is followed by Dr. Moreno * nephrology following * Repeat UA showing 3+ protein, 1+ glucose, 2+ urine blood, 3+ leukocytes, greater than 100 urine wbc's, 1+ bacteria. * Urine culture pending * HD today 10/15/23 * Will get dialysis tomorrow * Urine culture showing Proteus mirabilis however patient is not having symptoms of a UTI unlikely this is a colonization. (2) End stage renal disease: Code(s): N18.6 - End stage renal disease Status: Chronic Assessment and Plan: * See above (3) Hypertension: Qualifiers: Hypertension type: primary hypertension Qualified Code(s): I10 - Essential (primary) hypertension Code(s): I10 - Essential (primary) hypertension Status: Chronic Assessment and Plan: * Blood pressure ranging 147/72 to 156/68 * Continue hydralazine and amlodipine 10/15/23: * No change to current treatment plan (4) Type 2 diabetes mellitus with hyperglycemia: Qualifiers: Diabetes mellitus custodial insulin use: with custodial use Qualified Code(s): E11.65 - Type 2 diabetes mellitus with hyperglycemia; Z79.4 - FPC (current) use of insulin Code(s): E11.65 - Type 2 diabetes mellitus with hyperglycemia Status: Chronic Assessment and Plan: * Blood sugars ranging 102-145 * Hemoglobin A1c ordered for the a.m. * Continue Lantus of 36 units at HS * Continue Sliding scale insulin 12 units subQ t.i.d. with meals * Diabetic diet 10/15/23: * No change to current treatment plan * Hemoglobin A1c 6.2 (5) Thrombocytopenia: Code(s): D69.6 - Thrombocytopenia, unspecified Status: Acute Assessment and Plan: * Initial platelet count 130, now 110 * Heparin on hold * continue to monitor * iron studies: iron 59, TIBC 215, 27% sat, 509 ferritin 10/15/23: * Platelet count 106 * Will check a vitamin B12 in the morning (6) Constipation: Code(s): K59.00 - Constipation, unspecified Status: Acute Assessment and Plan: 10/15/23: * Given Mag citrate x1 today as patient has not had a bowel movement in the last 12 days * If no improvement may consider a KUB Time Spent With Patient Time with patient: 25 - 35 minutes Subjective Date/time seen: 10/15/23 14:44 Interval history: 10/11/23: This is a 58 year old female who presented to the hospital today from [place] [facility] with lethargy and hypotension. Work up in the hospital included a head CT which was negative for any acute intracranial hemorrhage, mass, or infarct, and age related changes. She also had a CXR was negative for any acute cardiopulmonary process. CTA of the chest was negative for PE, shown a 3.8 cm adrenal mass. Initial labs revealed Hgb 9.2, Hct 28.9, plt 110, pO2 55.3, ABG saturation 87.5, Na+ 134, BUN 40, creatinine 6.10, CA+ 8.3, total protein 6.0. UA shown 4+ protein, 2+ glucose, trace ketones, trace leukocytes. Respiratory panel negative for Influenza, RSV, and COVID. Hep B antigen and antibody pending. MRSA was negative. EKG shown NSR with a rate of 62, prolonged QTc. Patient was given 2L NS in the ER with improvement of her blood pressure. Nephrology was consulted. On examination today patient is alert oriented x3, lying in the bed. She denies any fever, chills, nausea, vomiting, diarrhea, abdominal pain, chest pain, shortness a breath. Labs
--- NOTE | 2023-10-15 15:02 | PC.NURSE ---
On 10/15/23, the student, [Darcy Gardner], provided care and completed [facility] documentation on this patient. I have reviewed the student's documentation and agree with the findings.
[2023-10-15 17:08] LABS: Glucose Point of Care 130 mg/dl (65-105)
[2023-10-15] MEDS: ATORVASTATIN 40 MG TABLET 80 MG PO (21:40)
[2023-10-15] MEDS: rOPINIRole HCL 0.25 MG TABLET PO (21:40)
[2023-10-15] MEDS: AMITRIPTYLINE HCL 25 MG TABLET PO (21:40)
[2023-10-15] MEDS: INSULIN GLARGINE (*BKC) 100 UNITS/ML 32 UNITS SUB-Q (21:41)
[2023-10-15 21:48] LABS: Glucose Point of Care 101 mg/dl (65-105)
[2023-10-16] VITALS (22 sets, daily range): BP systolic 121–168; BP diastolic 22–81; PULSE 66–82; RESP 14–18; TEMP 36–37; O2SAT 93–99
[2023-10-16 06:15] LABS: Basophils Percent Auto 0.5 % (0.2-1.2); Eosinophils Absolute Auto 0.2 K/mm3 (0-0.3); Eosinophils Percent Auto 3.1 % (0-4.4); Hematocrit 31.4 % (37.0-47.0); Immature Granulocyte Absolute 0.02 K/mm3 (0.00-0.031); Immature Granulocyte Percent A 0.3 % (0-0.5); Lymphocytes Absolute Auto 0.72 K/mm3 (0.9-3.2); Lymphocytes Percent Auto 9.3 % (18.3-44.2); Mean Corpuscular HGB Conc 31.8 g/dl (32-36); Mean Corpuscular Hemoglobin 31.3 pg (26-34); Mean Corpuscular Volume 98.1 fl (80-100); Mean Platelet Volume 10.8 fl (7.4-10.4); Monocytes Absolute Auto 0.9 K/mm3 (0.1-0.6); Monocytes Percent Auto 11.7 % (2.6-8.5); Neutrophils Absolute Auto 5.8 K/mm3 (1.3-6.7); Neutrophils Percent Auto 75.1 % (45.5-73.1); Platelet Count Result 124 k/mm3 (150-375); White Blood Count 7.8 K/mm3 (4.5-10.0)
[2023-10-16 06:27] LABS: Alanine Aminotransferase 10 U/L (6-35); Albumin Level 3.4 g/dL (3.5-5.1); Alkaline Phosphatase 72 U/L (38-126); Anion Gap 5 mmol/L (8-16); Aspartate Amino Transferase 16 U/L (14-36); Bilirubin,Total 0.6 mg/dL (0.2-1.3); Blood Urea Nitrogen 39 mg/dL (7-17); Calcium 8.5 mg/dL (8.4-10.2); Carbon Dioxide 30 mmol/L (22-30); Chloride 100 mmol/L (98-107); Estimated CRCL calculation 12 ml/min; Estimated Glomerular Filt Rate 8; Glucose 104 mg/dL (65-110); Sodium 135 mmol/L (137-145)
[2023-10-16 08:01] LABS: Glucose Point of Care 104 mg/dl (65-105)
--- NOTE | 2023-10-16 08:43 | PC.NURSE ---
Patient to hemodialysis, per bed, at 0830 on 10/16/23.
--- NOTE | 2023-10-16 09:45 | P.PNNP_ITS ---
Progress Note: A&P Assessment and Plan (1) End stage renal disease: Code(s): N18.6 - End stage renal disease Status: Chronic Assessment and Plan: * HD today * continue outpatient Thu/Thu/Thursday dialysis schedule * kidney disease due to HTN and DM * follow electrolytes, volume status, and clearance * follows with Dr. Moreno at [facility] (2) CVA (cerebral vascular accident): Code(s): I63.9 - Cerebral infarction, unspecified Status: Acute Assessment and Plan: * as noted by evaluation at [facility] prior to transfer to [facility] * continue medical management * PT/OT as tolerated (3) Altered mental status: Code(s): R41.82 - Altered mental status, unspecified Status: Acute Assessment and Plan: * appears to be doing better/back to baseline * etiology not clear * due to hypotension? * previous CVA? * infection (UTI?) - urine culture noted but asymptomatic * follow mentation (4) Hypertension: Qualifiers: Hypertension type: primary hypertension Qualified Code(s): I10 - Essential (primary) hypertension Code(s): I10 - Essential (primary) hypertension Status: Chronic Assessment and Plan: * initially low on presentation * s/p IVF resuscitation and holding BP medications * perhaps back to back dialysis treatments prior to presentation to [facility] was responsible * BP better at this time * slowly re-introduce anti-hypertensive medications as needed/tolerated (5) Anemia: Code(s): D64.9 - Anemia, unspecified Status: Chronic Assessment and Plan: * due to ESRD * Epogen with HD * follow trend of H/H (6) Type 2 diabetes mellitus with hyperglycemia: Qualifiers: Diabetes mellitus intermediate insulin use: with intermediate use Qualified Code(s): E11.65 - Type 2 diabetes mellitus with hyperglycemia; Z79.4 - prison (current) use of insulin Code(s): E11.65 - Type 2 diabetes mellitus with hyperglycemia Status: Chronic Assessment and Plan: * follow accu-cheks * glycemic control per hospitalists Will continue to follow. Subjective Date/time seen: 10/16/23 09:45 Interval history: Follow-up for end stage renal disease on hemodialysis. Tolerating dialysis treatment at the time of my visit (seen on HD at 9:35AM); overall, feels reasonably well and in no apparent distress; still reports no bowel movement; no other issues/events overnight or earlier this morning. Exam Narrative: General: WD/WN female in NAD Heart: normal S1 and S2; no rub Lungs: clear to auscultation Abdomen: soft, nontender, nondistended, positive bowel sounds Extremities: no cyanosis or clubbing; no edema Skin: warm and dry Objective Data Vital Signs Vital Signs: Vital Signs Temp Pulse Resp BP Pulse Ox O2 Del Method 10/16/23 09:45 75 125/64 10/16/23 09:30 71 124/69 10/16/23 09:15 73 123/60 10/16/23 09:00 71 130/73 10/16/23 08:45 72 150/75 H 10/16/23 08:41 72 150/75 H 10/16/23 08:31 97.7 F 72 17 130/70 98 10/16/23 04:14 97.7 F 69 18 148/69 H 93 10/15/23 22:26 94 Room Air 10/15/23 23:53 98.7 F 64 18 135/74 94 10/15/23 20:56 97.6 F 63 20 135/70 94 10/15/23 18:13 97.5 F
--- NOTE | 2023-10-16 09:45 | PM.PNNEP ---
Progress Note: A&P Assessment and Plan (1) End stage renal disease: Code(s): N18.6 - End stage renal disease Status: Chronic Assessment and Plan: HD today continue outpatient Thu/Thu/Thursday dialysis schedule kidney disease due to HTN and DM follow electrolytes, volume status, and clearance follows with Dr. Morneo at [facility] [place] [facility] (2) CVA (cerebral vascular accident): Code(s): I63.9 - Cerebral infarction, unspecified Status: Acute Assessment and Plan: as noted by evaluation at [facility] prior to transfer to [facility] continue medical management PT/OT as tolerated (3) Altered mental status: Code(s): R41.82 - Altered mental status, unspecified Status: Acute Assessment and Plan: appears to be doing better/back to baseline etiology not clear due to hypotension? previous CVA? infection (UTI?) - urine culture noted but asymptomatic follow mentation (4) Hypertension: Qualifiers: Hypertension type: primary hypertension Qualified Code(s): I10 - Essential (primary) hypertension Code(s): I10 - Essential (primary) hypertension Status: Chronic Assessment and Plan: initially low on presentation s/p IVF resuscitation and holding BP medications perhaps back to back dialysis treatments prior to presentation to [facility] was responsible BP better at this time slowly re-introduce anti-hypertensive medications as needed/tolerated (5) Anemia: Code(s): D64.9 - Anemia, unspecified Status: Chronic Assessment and Plan: due to ESRD Epogen with HD follow trend of H/H (6) Type 2 diabetes mellitus with hyperglycemia: Qualifiers: 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 Subjective Date/time seen: 10/16/23 09:45 Interval history: Follow-up for end stage renal disease on hemodialysis. Tolerating dialysis treatment at the time of my visit (seen on HD at 9:35AM); overall, feels reasonably well and in no apparent distress; still reports no bowel movement; no other issues/events overnight or earlier this morning. Exam Narrative: General: WD/WN female in NAD Heart: normal S1 and S2; no rub Lungs: clear to auscultation Abdomen: soft, nontender, nondistended, positive bowel sounds Extremities: no cyanosis or clubbing; no edema Skin: warm and dry Objective Data Vital Signs Vital Signs: Vital Signs Temp Pulse Resp BP Pulse Ox O2 Del Method 10/16/23 09:45 75 125/64 10/16/23 09:30 71 124/69 10/16/23 09:15 73 123/60 10/16/23 09:00 71 130/73 10/16/23 08:45 72 150/75 H 10/16/23 08:41 72 150/75 H 10/16/23 08:31 97.7 F 72 17 130/70 98 10/16/23 04:14 97.7 F 69 18 148/69 H 93 10/15/23 22:26 94 Room Air 10/15/23 23:53 98.7 F 64 18 135/74 94 10/15/23 20:56 97.6 F 63 20 135/70 94 10/15/23 18:13 97.5 F L 61 17 125/54 L 96 Intake/Output Intake/Output: Intake & Output 10/13/23 10/14/23 10/15/23 10/16/23 23:59 23:59 23:59 23:59 Intake Total 243 111 8517 290 Output Total 937 733 5328 Balance 540 -20 1310 -1211 Meds/Results Medications: Active Medications Generic Name Dose Route Start Last Admin Trade Name Freq PRN Reason Stop Dose Admin Acetaminophen 650 mg 10/10/23 00:34 10/11/23 20:51 Acetaminophen 325 Mg Tablet BY MOUTH 650 mg Q6H PRN Administration mild pain 1-3 Albuterol 2 puff 10/10/23 00:23 Albuterol Sulfate (*Sp) Aerosol 1 Puff INHALATION Q4H PRN Wheezing Amitriptyline HCl 25 mg 0
[2023-10-16] MEDS: EPOETIN ALFA-EPBX 10,000 UNITS/ML VIAL 10000 UNITS IV PUSH (11:39)
--- NOTE | 2023-10-16 12:49 | PC.NURSE ---
patient returned to unit from dialysis, per bed, at 1248, 10/16/23.
[2023-10-16] MEDS: HEPARIN SODIUM 1,000 UNITS/ML VIAL 4000 UNITS (12:52)
[2023-10-16] MEDS: SODIUM CHLORIDE 0.9% IV 1,000 ML 999 ML IV CONT (12:53)
[2023-10-16 12:56] LABS: Glucose Point of Care 98 mg/dl (65-105)
--- NOTE | 2023-10-16 15:12 | P.DS_ITS ---
DS: Admitting Diagnosis Discharge Date 10/16/23 Admitting Diagnosis Acute hypoxic respiratory failure, Weakness, AMS, Lethargy, low Blood pressure DS: Discharge Diagnosis Discharge Diagnosis (1) Hemodialysis patient: Code(s): Z99.2 - Dependence on renal dialysis Status: Acute Assessment and Plan: 10/14/23 * Normally Thursday dialysis * She is followed by Dr. Moreno * nephrology following * Repeat UA showing 3+ protein, 1+ glucose, 2+ urine blood, 3+ leukocytes, greater than 100 urine wbc's, 1+ bacteria. * Urine culture pending * HD today 10/15/23 * Will get dialysis tomorrow * Urine culture showing Proteus mirabilis however patient is not having symptoms of a UTI unlikely this is a colonization. 10/16/23 * Dialysis days are Thursday, Thursday and Thursday * Followed by Dr. Moreno * Nephrology following in house for dialysis- has tolerated dialysis treatments * Repeat urine culture shows proteus mirabilis, although patient denies urinary symptoms- presentation of altered mental status is suggestive of needed treatment. Will give Cefdinir 300mg PO qDay x 5 days. 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 * Continue Lantus of 36 units at HS * Continue Sliding scale insulin 12 units subQ t.i.d. with meals * Diabetic diet 10/15/23: * No change to current treatment plan * Hemoglobin A1c 6.2 10/16/23 * Blood glucose 104 today * Continue home diabetic medications upon discharge (5) Thrombocytopenia: Code(s): D69.6 - Thrombocytopenia, unspecified Status: Acute Assessment and Plan: * Initial platelet count 130, now 110 * Heparin on hold * continue to monitor * iron studies: iron 59, TIBC 215, 27% sat, 509 ferritin 10/15/23: * Platelet count 106 * Will check a vitamin B12 in the morning 10/16/23 * Platelet count 124 * Vitamin B12 542 * Would recommend no further anticoagulation with heparin until platelet counts return to normal limits. Heparin has been held throughout this admission. (6) Constipation: Code(s): K59.00 - Constipation, unspecified Status: Acute Assessment and Plan: 10/15/23: * Given Mag citrate x1 today as patient has not had a bowel movement in the last 12 days * If no improvement may consider a KUB 10/16/23 * KUB complete and showed constipation * Patient had bowel movement today (7) Acute hypoxemic respiratory failure: Code(s): J96.01 - Acute respiratory failure with hypoxia Status: Acute Assessment and Plan: 10/16/23 * Patient on room air, no acute distress
--- NOTE | 2023-10-16 15:12 | PM.DS ---
DS: Admitting Diagnosis Discharge Date 10/16/23 Admitting Diagnosis Acute hypoxic respiratory failure, Weakness, AMS, Lethargy, low Blood pressure DS: Discharge Diagnosis Discharge Diagnosis (1) Hemodialysis patient: Code(s): Z99.2 - Dependence on renal dialysis Status: Acute Assessment and Plan: 10/14/23 Normally Thursday dialysis She is followed by Dr. Moreno nephrology following Repeat UA showing 3+ protein, 1+ glucose, 2+ urine blood, 3+ leukocytes, greater than 100 urine wbc's, 1+ bacteria. Urine culture pending HD today 10/15/23 Will get dialysis tomorrow Urine culture showing Proteus mirabilis however patient is not having symptoms of a UTI unlikely this is a colonization. 10/16/23 Dialysis days are Thursday, Thursday and Thursday Followed by Dr. Moreno Nephrology following in house for dialysis- has tolerated dialysis treatments Repeat urine culture shows proteus mirabilis, although patient denies urinary symptoms- presentation of altered mental status is suggestive of needed treatment. Will give Cefdinir 300mg PO qDay x 5 days. 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 Continue Lantus of 36 units at HS Continue Sliding scale insulin 12 units subQ t.i.d. with meals Diabetic diet 10/15/23: No change to current treatment plan Hemoglobin A1c 6.2 10/16/23 Blood glucose 104 today Continue home diabetic medications upon discharge (5) Thrombocytopenia: Code(s): D69.6 - Thrombocytopenia, unspecified Status: Acute Assessment and Plan: Initial platelet count 130, now 110 Heparin on hold continue to monitor iron studies: iron 59, TIBC 215, 27% sat, 509 ferritin 10/15/23: Platelet count 106 Will check a vitamin B12 in the morning 10/16/23 Platelet count 124 Vitamin B12 542 Would recommend no further anticoagulation with heparin until platelet counts return to normal limits. Heparin has been held throughout this admission. (6) Constipation: Code(s): K59.00 - Constipation, unspecified Status: Acute Assessment and Plan: 10/15/23: Given Mag citrate x1 today as patient has not had a bowel movement in the last 12 days If no improvement may consider a KUB 10/16/23 KUB complete and showed constipation Patient had bowel movement today (7) Acute hypoxemic respiratory failure: Code(s): J96.01 - Acute respiratory failure with hypoxia Status: Acute Assessment and Plan: 10/16/23 Patient on room air, no acute distress noted, no labored respirations, denies shortness of breath No acute respiratory distress- resolved at this time. DS: Summary Hospital Course Reason for hospitalization: Anemia, Acute hypoxemic respiratory failure, Hemodialysis patient, Adrenal mass, left Hospital Course: 58 year old female examined today at bedside interval assessment as she tp the ER for lethargy and AMS. Upon presentation to ER, blood work up showed no acute abnormalities as they were consi
[2023-10-16 17:15] LABS: Glucose Point of Care 160 mg/dl (65-105)
== END 2023-10-16 19:25 | DRG 189 ==
LOC: ANHED 13:30 → ANH2MED 15:16
PROVIDERS: Internal Medicine Nephrology; Nurse Practitioner; Nurse Practitioner Acute Care; Admitting Provider Internal Medicine; Emergency Provider Emergency Medicine; PCP Family Medicine; Visit Provider Nurse Practitioner Family
DX: J96.01 Acute respiratory failure with hypoxia (principal); N18.6 End stage renal disease; I69.351 Hemiplegia and hemiparesis following cerebral infarction affecting right dominant side; I12.0 Hypertensive chronic kidney disease with stage 5 chronic kidney disease or end stage renal disease; B96.4 Proteus (mirabilis) (morganii) as the cause of diseases classified elsewhere; D69.6 Thrombocytopenia, unspecified; D63.1 Anemia in chronic kidney disease; E11.22 Type 2 diabetes mellitus with diabetic chronic kidney disease; E27.8 Other specified disorders of adrenal gland; E78.5 Hyperlipidemia, unspecified; E11.40 Type 2 diabetes mellitus with diabetic neuropathy, unspecified; E11.65 Type 2 diabetes mellitus with hyperglycemia; E66.9 Obesity, unspecified; G25.81 Restless legs syndrome; I95.9 Hypotension, unspecified; K59.00 Constipation, unspecified; K21.9 Gastro-esophageal reflux disease without esophagitis; R41.82 Altered mental status, unspecified; Z11.52 Encounter for screening for COVID-19; Z79.82 Long term (current) use of aspirin; Z79.02 Long term (current) use of antithrombotics/antiplatelets; Z79.4 Long term (current) use of insulin; Z99.2 Dependence on renal dialysis; Z90.49 Acquired absence of other specified parts of digestive tract; Z68.37 Body mass index [BMI] 37.0-37.9, adult
CPT/HCPCS: 36415; 36600; 70450; 71045; 71275; 74018; 74183; 80053; 81001; 82607; 82728; 82805; 82948; 83036; 83540; 83550; 84100; 85025; 85055; 85610; 85730; 86706; 87086; 87186; 87340; 87637; 87641; 93005; 96361; 96372; 97110; 97112; 97161; 97165; 97530; 99285; A9270; A9577; C1751; G0257; G0378; J1644; J1815; J7030; Q5105; Q9967